=== PATIENT | female | born 1965 | race Caucasian/White ===

== ENCOUNTER 2020-11-29 09:08 | Inpatient (IN) ==
--- NOTE | 2020-11-26 14:55 | Anesthesiology Consultation ---
Date of Service November 26, 2020 Assessment & Plan (1) Encounter for pre-operative examination: Chart Review Chart Review: Pending: Refer to Additional Notes / Consult section (pending surgeon ordered PCP clearance ) and Patient NOT seen in Pre Admission Testing Awaiting surgeon ordered PCP clearance. Will check HR at PCP appt Per nursing assessment 11/26/2020, patient denies any recent travel. No known Covid infection in the past 90 days. No known Covid positive contacts or Covid related symptoms. Covid test 11/25/2020 = negative History Surgery Operation Date: 11/29/20 10:50 Proposed Procedures p L3-S1 Decompression and Fusion, Spinal Cord Monitoring - Jose M Arevalo, Height/Weight Height: 5 ft 6 in Weight: 92.533 kg Allergies Allergy/AdvReac Type Severity Reaction Status Date / Time nitrofurantoin Allergy Severe HEART Verified 11/26/20 13:48 FAILURE meperidine Allergy Intermediate HIVES, RASH Verified 11/26/20 13:48 BEE STING Allergy Severe Anaphylaxis Uncoded 11/26/20 13:49 ADHESIVE TAPE AdvReac Mild SKIN Uncoded 11/26/20 13:49 SENSITIVITY Medications Home Medications Medication Instructions Recorded Confirmed Last Taken albuterol sulfate [ProAir HFA] 2 puff INHALATION QID PRN 11/26/20 11/26/20 Unknown aspirin 325 mg PO DAILY 11/26/20 11/26/20 Unknown buspirone [BuSpar] 15 mg PO BID 11/26/20 11/26/20 Unknown eletriptan [Relpax] 40 mg PO UD PRN 11/26/20 11/26/20 Unknown furosemide [Lasix] 20 mg PO QAM 11/26/20 11/26/20 Unknown gabapentin 600 mg PO HS 11/26/20 11/26/20 Unknown gabapentin enacarbil [Horizant] 600 mg PO QPM 11/26/20 11/26/20 Unknown levothyroxine 175 mcg PO QAM 11/26/20 11/26/20 Unknown melatonin 10 mg PO HS 11/26/20 11/26/20 Unknown methylphenidate HCl [Ritalin] 5 mg PO DAILY 11/26/20 11/26/20 Unknown modafinil [Provigil] 200 mg PO DAILY 11/26/20 11/26/20 Unknown montelukast [Singulair] 10 mg PO QAM 11/26/20 11/26/20 Unknown omeprazole [Prilosec] 40 mg PO QAM 11/26/20 11/26/20 Unknown ondansetron HCl [Zofran] 8 mg PO Q8H PRN 11/26/20 11/26/20 Unknown solriamfetol [Sunosi] 150 mg PO QAM 11/26/20 11/26/20 Unknown tizanidine 4 - 8 mg PO HS PRN 11/26/20 11/26/20 Unknown tramadol 50 mg PO Q8H PRN 11/26/20 11/26/20 Unknown venlafaxine [Effexor XR] 75 mg PO QAM 11/26/20 11/26/20 Unknown vortioxetine [Trintellix] 10 mg PO QPM 11/26/20 11/26/20 Unknown Past Medical History Medical History Anxiety and depression Brain aneurysm DX'ED 4 YEARS AGO (STENT PLACED AT [facility]) Fibromyalgia GERD (gastroesophageal reflux disease) History of dysphagia "STRETCHING IN PAST" Hx of endometriosis Hypothyroidism Migraine Narcolepsy Post traumatic stress disorder Restless leg syndrome Short of breath on exertion REASON FOR INHALER Sleep apnea "MILD" USES CPAP Spinal stenosis Temporomandibular joint disorder Past Family History Family History Sister Family history of diabetes mellitus Grandmother (Maternal) Family history of diabetes mellitus Grandfather (Paternal) Family hx of colon cancer Past Surgical History Surgical History Family history of reaction to anesthesia BROTHER-WAKES UP IN MIDDLE OF PROCEDURES H/O bilateral oophorectomy History of anesthesia reaction HAS WOKEN UP IN PAST History of appendectomy History of arthroscopy RT KNEE History of blepharoplasty BILAT. History of bunionectomy LEFT X 2 RT X 1 History of carpal tunnel release RT/LEFT History of section X 1 History of cholecystectomy History of colonoscopy History of endoscopic sinus surgery History of esophagogastroduodenoscopy (EGD) History of hysterectomy History of laparoscopy History of tonsillectomy and adenoidectomy History of tooth extraction Nausea and vomiting after administration of anesthetic agent Social History Smoking Status: Former smoker tobacco type: cigarettes Do You Dip or Chew Tobacco: No Smoking End Date: 2013 Alcohol Use: Yes alcohol intake frequency: holidays/special occasions only substance use type: does not use Testing Laboratory Results Laboratory Tests 11/13/20 11/13/20 11/13/20 14:34 14:34 14:34 WBC 8.45 Hgb 14.3 Hct 43.6 Plt Count 412 H PT 10.1 INR 1.0 Sodium 143 Potassium 3.9 Chloride 110 H Carbon Dioxide 28 BUN 14 Creatinine 0.88 Glucose 103 H 11/13/2020 = UA: Negative Electrocardiogram Date: 11/13/20 Findings: + ST @ (110 bpm) Otherwise normal EKG per cardio. Chest X-Ray Date: 11/13/20 Findings: + NAD Mild elevation of right hemidiaphragm.
[~2020-11-29 09:08] MED LIST: ACETAMINOPHEN 500 MG TAB PO SCH; CeleBREX 200 MG CAP PO SCH; GABAPENTIN 900 MG DOSE PO SCH; LR 15ML/HR IV SCH; ceFAZolin 2000MG 2,000 MG/15 ML SYR IV SCH
[2020-11-29] MEDS ORDERED: LIDOCAINE HCL 2% 2 ML VIAL/AMP(20MG/ML) INFIL ONE (10:00)
[2020-11-29] MEDS ORDERED: PROPOFOL IV EMULSION 10 MG/ML 20 ML VIAL IV ONE (10:00)
[2020-11-29] MEDS ORDERED: fentaNYL citrate 100 MCG/2 ML VIAL ONE (10:00)
[2020-11-29] MEDS ORDERED: ONDANSETRON INJ 2 MG/ML 2 ML VIAL ONE ×2 (10:00→11:34)
[2020-11-29] MEDS ORDERED: MIDAZOLAM HCL 1 MG/ML 2ML VIAL ONE (10:00)
[2020-11-29] MEDS ORDERED: DEXAMETHASONE SOD INJ 4 MG/ML VIAL ONE (10:01)
[2020-11-29] MEDS ORDERED: HYDROmorphone INJ 2 MG/ML SYR/VIAL ONE (10:01)
[2020-11-29] MEDS ORDERED: ROCURONIUM BROMIDE 10 MG/ML 5 ML VIAL IV ONE (10:01)
--- NOTE | 2020-11-29 10:26 | History & Physical Bridge Note ---
Date of Service November 29, 2020 History & Physical Bridge Note I have examined the patient, reviewed the History & Physical and in the interval since the performance of the History & Physical I have noted the following changes of clinical significance: no changes noted
--- NOTE | 2020-11-29 10:27 | History & Physical Report ---
Date of Service November 29, 2020 Assessment & Plan (1) Neurogenic claudication due to lumbar spinal stenosis: Admission and Anticipated Discharge Date Admission Date: L3-S1 decompression fusion History of Present Illness Chief Complaint: Back and bilateral leg pain Primary Care Provider: Maxine Guo MD This is a 55-year-old female who presents with chronic persistent back and bilateral leg pain. Failing course of nonoperative care she is here for surgical intervention. Allergies Allergy/AdvReac Type Severity Reaction Status Date / Time nitrofurantoin Allergy Severe HEART Verified 11/29/20 09:34 FAILURE meperidine Allergy Intermediate HIVES, RASH Verified 11/29/20 09:34 BEE STING Allergy Severe Anaphylaxis Uncoded 11/29/20 09:34 ADHESIVE TAPE AdvReac Mild SKIN Uncoded 11/29/20 09:34 SENSITIVITY Home Medications Medication Instructions Recorded Confirmed Type albuterol sulfate [ProAir HFA] 2 puff INHALATION QID PRN 11/26/20 11/29/20 History aspirin 325 mg PO DAILY 11/26/20 11/29/20 History buspirone [BuSpar] 15 mg PO BID 11/26/20 11/29/20 History eletriptan [Relpax] 40 mg PO UD PRN 11/26/20 11/29/20 History furosemide [Lasix] 20 mg PO QAM 11/26/20 11/29/20 History gabapentin 600 mg PO HS 11/26/20 11/29/20 History gabapentin enacarbil [Horizant] 600 mg PO QPM 11/26/20 11/29/20 History levothyroxine 175 mcg PO QAM 11/26/20 11/29/20 History melatonin 10 mg PO HS 11/26/20 11/29/20 History methylphenidate HCl [Ritalin] 5 mg PO DAILY 11/26/20 11/29/20 History modafinil [Provigil] 200 mg PO DAILY 11/26/20 11/29/20 History montelukast [Singulair] 10 mg PO QAM 11/26/20 11/29/20 History omeprazole [Prilosec] 40 mg PO QAM 11/26/20 11/29/20 History ondansetron HCl [Zofran] 8 mg PO Q8H PRN 11/26/20 11/29/20 History solriamfetol [Sunosi] 150 mg PO QAM 11/26/20 11/29/20 History tizanidine 4 - 8 mg PO HS PRN 11/26/20 11/29/20 History tramadol 50 mg PO Q8H PRN 11/26/20 11/29/20 History venlafaxine [Effexor XR] 75 mg PO QAM 11/26/20 11/29/20 History vortioxetine [Trintellix] 10 mg PO QPM 11/26/20 11/29/20 History Past Med/Surg History Medical History Anxiety and depression Brain aneurysm DX'ED 4 YEARS AGO (STENT PLACED AT [facility]) Fibromyalgia GERD (gastroesophageal reflux disease) History of dysphagia "STRETCHING IN PAST" Hx of endometriosis Hypothyroidism Migraine Narcolepsy Post traumatic stress disorder Restless leg syndrome Short of breath on exertion REASON FOR INHALER Sleep apnea "MILD" USES CPAP Spinal stenosis Temporomandibular joint disorder Surgical History Family history of reaction to anesthesia BROTHER-WAKES UP IN MIDDLE OF PROCEDURES H/O bilateral oophorectomy History of anesthesia reaction HAS WOKEN UP IN PAST History of appendectomy History of arthroscopy RT KNEE History of blepharoplasty BILAT. History of bunionectomy LEFT X 2 RT X 1 History of carpal tunnel release RT/LEFT History of section X 1 History of cholecystectomy History of colonoscopy History of endoscopic sinus surgery History of esophagogastroduodenoscopy (EGD) History of hysterectomy History of laparoscopy History of tonsillectomy and adenoidectomy History of tooth extraction Nausea and vomiting after administration of anesthetic agent Family History Sister Family history of diabetes mellitus Grandmother (Maternal) Family history of diabetes mellitus Grandfather (Paternal) Family hx of colon cancer Social History Smoking Status: Former smoker Smoking End Date: 2013; Second Hand Exposure: Yes (IN THE PAST); Do You Dip or Chew Tobacco: No; Tobacco Cessation Education Requested by Patient: No Hx Alcohol Use: Yes Preferred Language: Thai 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
[2020-11-29] MEDS ORDERED: SCOPOLAMINE 1 MG TDSY TD ONE ×2 (10:40→10:42)
[2020-11-29] MEDS ORDERED: fentaNYL citrate 100 MCG/2 ML VIAL IV PRN (10:41)
[2020-11-29] MEDS ORDERED: ATROPINE SULFATE 0.1 MG/ML 10ML SYR IV PRN (10:41)
[2020-11-29] MEDS ORDERED: ePHEDrine sulfate 50 MG/ML AMP IV PRN (10:41)
[2020-11-29] MEDS ORDERED: HYDROmorphone INJ 2 MG/ML SYR/VIAL IV PRN (10:42)
[2020-11-29] MEDS ORDERED: PROMETHAZINE HCL 12.5 MG in SODIUM CHLORIDE 0.9% 50 ML IV PRN ×2 (10:42→14:34)
[2020-11-29] MEDS ORDERED: ONDANSETRON INJ 2 MG/ML 2 ML VIAL IV PRN ×2 (10:42→14:34)
[2020-11-29] MEDS ORDERED: BUPIVACAINE/EPINEPHRINE 0.5% MPF 1:200,000 30 ML VIAL ONE (10:45)
[2020-11-29] MEDS ORDERED: BACITRACIN INJ 50,000 UNIT VIAL ONE (10:45)
[2020-11-29] MEDS ORDERED: FAMOTIDINE/PF 20 MG/2 ML VIAL IV ONE (10:49)
[2020-11-29] MEDS ORDERED: ePHEDrine sulfate 50 MG/ML AMP ONE (11:30)
[2020-11-29] MEDS ORDERED: PHENYLEPHRINE HCL 10 MG/ML VIAL ONE (11:30)
[2020-11-29] MEDS ORDERED: METOCLOPRAMIDE HCL INJ 5 MG/ML 2 ML VIAL ONE (11:34)
[2020-11-29] MEDS ORDERED: diphenhydrAMINE 50 MG/ML VIAL ONE (11:34)
[2020-11-29] MEDS ORDERED: GLYCOPYRROLATE 0.2 MG/ML VIAL ONE (11:53)
[2020-11-29] MEDS ORDERED: NEOSTIGMINE METHYLSULFATE 1 MG/ML 10ML VIAL ONE (11:53)
[2020-11-29] MEDS ORDERED: FLOSEAL HEMOSTATIC MATRIX 10ML TOP ONE (13:09)
[2020-11-29] MEDS ORDERED: KETOROLAC 30 MG/ML VIAL ONE (13:11)
--- NOTE | 2020-11-29 13:17 | Operative Report ---
Post Operative Report Pre & Post Diagnosis Operation Date: 11/29/20 10:40 Pre-Op Diagnosis: Spinal Stenoisis with Neurogenic Claudication L3-S1 Post-Op Diagnosis: Spinal Stenoisis with Neurogenic Claudication L3-S1 I identified the patient and participated in the time-out.: Yes Procedure Operation Date: 11/29/20 10:40 Actual Procedures #1 Lumbar decompression with bilateral medial facetectomies and foraminotomies L3-4, L4-5 and L5-S1. #2 posterior spinal fusion L4-5 L5-S1. #3 placement posterior instrumentation L4-5 L5-S1. #4 interbody fusion L4-5 L5-S1. #5 placed a peek cage 12 x 22 mm at L4-5 and 10 x 22 mm at L5-S1. #6 placement locally harvested morselized autograft in the posterior lateral gutters. #7 placement infuse collagen sponge, and master graft in the posterior lateral gutters and ostial amp interbody space. Surgeon Jose M Arevalo, DO Jewel Diameter Gauger Moriah Spencer Estimated Blood Loss 200 Findings See Below Patient is 5 foot 6 weighing over 91 kg with a BMI in excess of 32. Patient's body habitus did add significant technical difficulty requiring her deepest retractors and longest instruments in order to perform her procedure. At least 50% increase to the operative time. Specimens None Indications This is a 55-year-old female who presents with above-mentioned diagnosis after failing course of nonoperative care is here for the above-mentioned procedure. Description of Procedure Patient was met with identified informed consent obtained. Patient was then taken to the operative suite underwent an patient placed in a prone position the Steven table on top Juan frame. All bony prominences well-padded eyes inspected to ensure no external pressure placed upon the. This point the lumbar spine was prepped and draped in a sterile fashion. Sharp dissection with the assistance of Bovie cautery was performed down to and exposing the lamina and transverse processes of L4-L5 and sacral ala bilaterally. From caudal cephalad fashion complete laminectomy of L5 L4 and partial laminectomy of L3 was performed obvious bilateral pars defect was noted at L5 bilaterally. I performed bilateral medial facetectomies and foraminotomies addressing severe spinal stenosis. Pedicle screws were then placed in L4-L5 and S1 levels bilaterally with assistance of fluoroscopy the proper sized yuri placed. By way of a transforamen approach and left complete discectomy was performed endplates curetted to subcortical being bone and a 10 x 22 mm peek cage filled with osteobone graft tapped in position. Then proceeded L4-[address] of a transforaminal portion left complete discectomy was performed endplates curetted to subcortically bone and a 12 x 22 mm peek cage filled with osteobone graft tapped in position. The rods were then locked in final position bilaterally. The transverse processes of L4-L5 and sacral ala burred to subcortical bleeding bone. Infuse collagen sponge master graft local autograft was placed in the posterior gutters. 15 round CLAUDE drain inserted. The incision was then closed with 1 Vicryl the fascia 2-0 Vicryl subcutaneously and 4 Monocryl for final skin closure. Steri-Strip sterile dressings placed. Patient will continue PACU stable condition. Please note spinal cord monitoring was utilized at the procedure no changes noted. Lastly Moriah Spencer was present at the entire procedure involved in patient positioning complex portions of the surgery and final skin closure. I attest to the content of the Intraoperative Record and any orders documented therein. Any exceptions are noted below.
--- NOTE | 2020-11-29 13:23 | Fluoroscopy Report ---
FL lumbar spine 2-3V CLINICAL HISTORY: L3-S1 DECOMPRESSION AND FUSION COMPARISON STUDY: None. FLUOROSCOPY TIME: 23 seconds. FLUOROSCOPIC IMAGES: 2 FINDINGS: These images demonstrate L4-L5 and L5-S1 discectomies with interbody spacer placement. Post erior decompression is noted with bilateral pedicle screws from L4 through S1 with interconnecting ro ds. Hardware is intact. There are no unexpected radiopaque foreign bodies. IMPRESSION: Fluoroscopy provided during L4-S1 posterior decompression, bilateral pedicle screw fusio n and discectomy. ACT 112: Negative or not required by law. Electronically signed by: Juan Bhatt M.D. 11/29/2020 1:22 PM
--- NOTE | 2020-11-29 14:28 | Anesthesiology Progress Note ---
Date of Service November 29, 2020 Anesthesia Post Procedure Vital Signs Vital Signs: Temp Pulse Pulse Resp BP BP Pulse Ox 11/29/20 14:25 77 17 108/52 L 98 11/29/20 14:15 36.6 C 83 17 105/65 98 11/29/20 14:05 74 13 116/65 98 11/29/20 13:55 72 14 124/67 96 11/29/20 13:45 70 12 121/61 97 11/29/20 13:35 36.7 C 78 15 120/56 L 93 11/29/20 09:57 36.9 C 89 16 108/74 97 Pain Intensity Posterior Back: Pain Intensity: 4 Transfer of Care Handoff Completed per policy Notes Mental Status: alert / awake / arousable and participated in evaluation Patient Amnestic to Procedure: Yes Nausea / Vomiting: adequately controlled Pain: adequately controlled Airway Patency, RR, SpO2: stable & adequate BP & HR: stable & adequate Hydration State: stable & adequate Anesthetic Complications: no major complications apparent and Pt Satisfied with anesthetic care
[2020-11-29] MEDS ORDERED: SOD PHOSPHATE/SOD BIPHOSPHATE ENEMA 132 ML BTL PR PRN (14:34)
[2020-11-29] MEDS ORDERED: NON-FORMULARY MEDICATION (Ondansetron Hcl 8 mg Tablet) PO PRN (14:34)
[2020-11-29] MEDS ORDERED: ACETAMINOPHEN 1,000 MG/100 ML VIAL IV PRN (14:34)
[2020-11-29] MEDS ORDERED: LORazepam 0.5 MG/1 ML VIAL IV PRN (14:34)
[2020-11-29] MEDS ORDERED: ALBUTEROL HFA 8 GM INHALER INH PRN (14:34)
[2020-11-29] MEDS ORDERED: FAMOTIDINE 20 MG TAB PO PRN (14:34)
[2020-11-29] MEDS ORDERED: traMADol HCL 50 MG TABLET PO PRN (14:34)
[2020-11-29] MEDS ORDERED: hydrOXYzine HCl 25 MG TAB PO PRN (14:34)
[2020-11-29] MEDS ORDERED: DO NOT ADMINISTER PNEUMOCOCCAL VACCINE PRN (14:34)
[2020-11-29] MEDS ORDERED: METOCLOPRAMIDE HCL INJ 5 MG/ML 2 ML VIAL IV PRN (14:34)
[2020-11-29] MEDS ORDERED: MAGNESIUM HYDROXIDE SUSP 30 ML UDC PO PRN (14:34)
[2020-11-29] MEDS ORDERED: DO NOT ADMINISTER FLU VACCINE PRN (14:34)
[2020-11-29] MEDS ORDERED: NALOXONE HCL 0.4 MG/1 ML VIAL/CARP IV PRN (14:34)
[2020-11-29] MEDS ORDERED: HYDROmorphone INJ 1 MG/ML SYRINGE IV PRN (14:34)
[2020-11-29] MEDS ORDERED: diphenhydrAMINE Capsule 25 MG CAP PO PRN (14:34)
[2020-11-29] MEDS ORDERED: ACETAMINOPHEN 500 MG TAB PO PRN (14:34)
[2020-11-29] MEDS ORDERED: HYDROmorphone INJ 0.5 MG/0.5 ML SYR IV PRN (14:34)
[2020-11-29] MEDS ORDERED: ONDANSETRON 4 MG OD TAB PO PRN (14:34)
[2020-11-29] MEDS ORDERED: ALUMINUM/MAGNESIUM SUSP 30 ML UDC PO PRN (14:34)
[2020-11-29] MEDS ORDERED: LORazepam 0.5 MG TAB PO PRN (14:34)
[2020-11-29] MEDS: LACTATED RINGER'S 1,000 ML IV SCH ×2 (15:13→19:21)
[2020-11-29] MEDS: CHECK SCOPOLAMINE PATCH PLACEMENT SCH ×2 (15:14→23:34)
[2020-11-29] MEDS: TRINTELLIX: ORDER AWAITING ACTION SCH ×2 (15:14→23:35)
[2020-11-29] MEDS: KETOROLAC TROMETHAMINE 15 MG/ML VIAL IV SCH ×2 (15:36→20:33)
[2020-11-29] MEDS: oxyCODONE HCL IR 5 MG TAB (IMMEDIATE RELEASE) PO PRN (19:22)
[2020-11-29] MEDS: ceFAZolin 2000MG 2,000 MG/15 ML SYR IV SCH (19:22)
[2020-11-29] MEDS: busPIRone 15 MG TAB PO SCH (20:33)
[2020-11-29] MEDS: DOCUSATE SODIUM/SENNA 50/8.6MG TAB PO SCH (20:33)
[2020-11-29] MEDS: GABAPENTIN 600 MG TAB PO SCH (20:33)
[2020-11-29] MEDS: MELATONIN 3 MG TAB PO SCH (22:02)
[2020-11-30] MEDS: KETOROLAC TROMETHAMINE 15 MG/ML VIAL IV SCH ×2 (03:18→09:01)
[2020-11-30] MEDS: ceFAZolin 2000MG 2,000 MG/15 ML SYR IV SCH (03:19)
[2020-11-30] MEDS: oxyCODONE HCL IR 5 MG TAB (IMMEDIATE RELEASE) PO PRN ×3 (03:24→18:07)
[2020-11-30] MEDS: LACTATED RINGER'S 1,000 ML IV SCH (04:04)
[2020-11-30] MEDS: LEVOTHYROXINE SODIUM 175 MCG TABLET PO SCH (05:53)
[2020-11-30 06:28] LABS: Hematocrit (blood only) 32.8 % (37-47); Hemoglobin 10.5 g/dL (12.0-16.0); Immature Granulocytes # (auto) 0.01 K/uL (0.00-0.02); Immature Granulocytes % (auto) 0.1 %; Lymphocytes # (auto) 1.02 K/uL (1.2-3.4); Mean Corpuscular Hemoglobin 32.6 pg (25-34); Mean Corpuscular Volume 101.9 fL (80-100); Mean Platelet Volume 11.1 fL (7.4-10.4); Neutrophils # (auto) 10.84 K/uL (1.4-6.5); Neutrophils % (auto) 84.9 %; Platelet Count 336 K/uL (130-400); RDW Coefficient of Variation 13.2 % (11.5-14.5); Red Blood Count 3.22 M/uL (4.2-5.4); White Blood Count 12.77 K/uL (4.8-10.8)
[2020-11-30 07:05] LABS: BUN Creatinine Ratio 15.5 (10-20); Calcium 8.7 mg/dl (8.5-10.1); Creatinine Clr Calc Pharmacy 84.1 ml/min; Est GFR (African American) 86.9; Potassium 4.3 mmol/L (3.5-5.1)
[2020-11-30] MEDS: TRINTELLIX: ORDER AWAITING ACTION SCH ×3 (07:51→23:40)
[2020-11-30] MEDS ORDERED: METHYLPHENIDATE HCL 5 MG TABLET PO SCH (09:00)
[2020-11-30] MEDS ORDERED: ASPIRIN 325 MG ECTAB PO SCH ×2 (09:00→17:00)
[2020-11-30] MEDS: CHECK SCOPOLAMINE PATCH PLACEMENT SCH ×3 (09:00→23:40)
[2020-11-30] MEDS ORDERED: Nursing to Pharmacy Communication SCH (09:00)
[2020-11-30] MEDS: modafiniL 100 MG TAB PO SCH (09:01)
[2020-11-30] MEDS: MONTELUKAST SODIUM 10 MG TABLET PO SCH (09:02)
[2020-11-30] MEDS: PANTOprazole 40 MG TAB PO SCH (09:02)
[2020-11-30] MEDS: FUROSEMIDE 20 MG TAB PO SCH (09:03)
[2020-11-30] MEDS: VENLAFAXINE HCL XR 75 MG CAPXR PO SCH (09:03)
[2020-11-30] MEDS: busPIRone 15 MG TAB PO SCH ×2 (09:04→21:59)
--- NOTE | 2020-11-30 10:23 | Orthopedic Progress Note ---
Date of Service November 30, 2020 Assessment & Plan (1) Neurogenic claudication due to lumbar spinal stenosis: Admission and Anticipated Discharge Date Admission Date: November 29, 2020 At this time we will continue physical therapy monitor CLAUDE output anticipate discharge home Tuesday. Subjective Back pain is controlled leg symptoms markedly improved. Physical Exam Physical Exam: Patient has good strength testing appears comfortable. Results & Data ([facility]) Vital Signs (Past 12 Hours) Vital Signs Temp Pulse Resp BP Pulse Ox 11/30/20 07:23 36.6 C 61 16 106/66 94 11/30/20 05:55 101/67 11/30/20 03:17 36.7 C 79 16 93/60 L 93 11/29/20 23:17 36.7 C 88 16 106/67 93
[2020-11-30] MEDS: METHYLPHENIDATE HCL 5 MG TABLET PO SCH (12:09)
[2020-11-30] MEDS: POLYETHYLENE (MIRALAX) 17 GM PACK PO SCH ×3 (12:09→23:39)
[2020-11-30] MEDS: GABAPENTIN 600 MG TAB PO SCH (21:58)
[2020-11-30] MEDS: MELATONIN 3 MG TAB PO SCH (21:58)
[2020-11-30] MEDS: DOCUSATE SODIUM/SENNA 50/8.6MG TAB PO SCH (21:58)
[2020-12-01] MEDS: oxyCODONE HCL IR 5 MG TAB (IMMEDIATE RELEASE) PO PRN ×3 (06:15→15:48)
[2020-12-01] MEDS: POLYETHYLENE (MIRALAX) 17 GM PACK PO SCH ×2 (06:15→11:59)
[2020-12-01] MEDS: LEVOTHYROXINE SODIUM 175 MCG TABLET PO SCH (06:15)
[2020-12-01] MEDS: PANTOprazole 40 MG TAB PO SCH (08:35)
[2020-12-01] MEDS: FUROSEMIDE 20 MG TAB PO SCH (08:35)
[2020-12-01] MEDS: VENLAFAXINE HCL XR 75 MG CAPXR PO SCH (08:35)
[2020-12-01] MEDS: MONTELUKAST SODIUM 10 MG TABLET PO SCH (08:35)
[2020-12-01] MEDS: busPIRone 15 MG TAB PO SCH (08:35)
[2020-12-01] MEDS: CHECK SCOPOLAMINE PATCH PLACEMENT SCH (08:36)
[2020-12-01] MEDS: TRINTELLIX: ORDER AWAITING ACTION SCH (08:38)
[2020-12-01] MEDS: modafiniL 100 MG TAB PO SCH (08:42)
[2020-12-01] MEDS ORDERED: dexAMETHasone 8 MG in SYRINGE 0 ML IV SCH (09:00)
[2020-12-01] MEDS ORDERED: NURSING DECISION MEDICATION ONE (09:10)
[2020-12-01] MEDS ORDERED: SODIUM CHLORIDE 0.65% NA SOLN 45 ML (OCEAN) PRN (09:14)
[2020-12-01] MEDS: METHYLPHENIDATE HCL 5 MG TABLET PO SCH (11:59)
--- NOTE | 2020-12-01 12:58 | Discharge Summary ---
Date of Service December 01, 2020 Admission HPI Per Admitting Provider This is a 55-year-old female who presents with chronic persistent back and bilateral leg pain. Failing course of nonoperative care she is here for surgical intervention. Principal Diagnosis Lumbar spinal stenosis with neurogenic claudication Discharge Data Allergies Allergy/AdvReac Type Severity Reaction Status Date / Time nitrofurantoin Allergy Severe HEART Verified 11/29/20 09:34 FAILURE meperidine Allergy Intermediate HIVES, RASH Verified 11/29/20 09:34 BEE STING Allergy Severe Anaphylaxis Uncoded 11/29/20 09:34 ADHESIVE TAPE AdvReac Mild SKIN Uncoded 11/29/20 09:34 SENSITIVITY Consultations 11/29/20 14:34 Consult Case Management - Discharge Planning Routine Procedures Performed Operation Date: 11/29/20 10:40 Actual Procedures p L4-S1 Decompression and Fusion with bone morphogenic protein, interbody cage L4-5 and L5-S1, Spinal Cord Monitoring(Not Applicable) - Jose M Arevalo DO Ordered Studies 11/29/20 10:40 FL fluoroscopy <1hr Routine FL lumbar spine 2-3V Routine Hospital Course (1) Neurogenic claudication due to lumbar spinal stenosis: Patient underwent lumbar decompression fusion tolerated this well was taken to orthopedic floor postoperative. Postop day 1 she was up and ambulating leg symptoms improved. She gets a postop day #2 CLAUDE drain decreasing appropriately. Excellent strength testing. Pain well controlled. Subsequently discharged home. Discharge orders and instructions from the chart for further review. Total Time Total Time Spent Total Time Spent (In Minutes): 20 minutes Discharge Plan Discharge Items Patient Disposition: Home - Self-Care Reason For Visit: Spinal Stenoisis with Neurogenic Claudication Discharge Diagnosis: Lumbar spinal stenosis with neurogenic claudication Activity: As commented below Non-emergency contact: Primary Care Provider Call non-emergency contact if: you have any medication questions Follow-up/Referrals: Maxine Guo MD [Primary Care Provider] - Diet: Regular Addtl Attending Provider Instructions: ACTIVITY RECOMMENDATIONS: SELF CARE INSTRUCTIONS AFTER THORACIC/LUMBAR FUSIONS 1. You may walk to your tolerance. It is good exercise for your legs and back. Expect some back and intermittent leg aches and pains. 2. You may perform "counter-top" level activities (make a sandwich, francoise with a project, etc.). 3. No bending or lifting of more than 10 pounds or back twisting of any nature (roll like a log when turning in bed). 4. You may ride in a car for 20-30 minutes at a time. No driving until after your first visit with your doctor. 5. Frequent changes of position and restricting sitting to 30 minutes at a time will help limit the amount of back spasms and stiffness you may experience. 6. You may discontinue the use of ambulatory aids (cane, crutches, etc.) once your strength and confidence allow. 7. You may supervisor blueprinting and photocopy the shower and let water strike your incision when you arrive home at least once daily. Do not take a tub bath, sit in a hot tub or go into a swimming pool until after your first recheck in the office. SPECIAL CARE INSTRUCTIONS: VERY IMPORTANT TO READ AND REVIEW A. Your surgical incision has been closed with a cosmetic suture under the skin that will dissolve in about 6 weeks. In 14 days, you can use a pair of clean scissors and cut the suture that is left outside of the skin at the ends of your incision. 1. The small skin tapes can be removed 7 days after surgery if they have not fallen off by that point. 2. You may keep the wound open to air as much as possible to promote healing after post-op day number 5 unless told otherwise by your doctor. 3. If you think the wound looks like it is becoming infected (redness or worsening drainage) and/or you are experiencing fever, chill or worsening back pain and muscle spasms, contact the office so that we may evaluate you as soon as possible. B. Complications are uncommon, but please contact us if you have any signs or symptoms of: 1. wound infection (fever higher than 102.5 degrees F, redness, separation of wound, drainage, or increasing pain from the incision) 2. blood clots in legs (pain, swelling, redness and warmth in legs) 3. urinary tract infection (fever higher than 102.5 degrees F, burning upon urination or increased frequency of urination) 4. nerve problems (inability to walk on your toes or heels, numbness, loss of bowel or bladder control) 5. any other symptoms that concern you C. Please call the office at if you have any concerns or questions about your operation or recovery. D. No smoking! Smoking drastically decreases the chance of a solid fusion. E. Do not take any anti-inflammatory medications (Indocin, Advil, Motrin, Aspirin, Naprosyn, etc.) as these may inhibit the chance of a solid fusion. Tylenol is okay to take for pain. MANAGING PAIN AFTER SPINAL SURGERY 1. Narcotic medication is intended for short-term use and will be provided for surgical pain. Surgical pain usually lasts for a period of 4-6 weeks. Narcotic medication includes Percocet, Vicodin, Darvocet, Tylenol #3 or Lortab. 2. Longer-term pain is more appropriately treated with non-narcotic medication such as Tylenol ES. 3. Muscle spasm is not appropriately treated with narcotics. Muscle relaxers such as Soma, Flexeril or Skelaxin can be used along with Tylenol ES. 4. Remember that we all live with some "aches and pains". This is not unusual or uncommon after an injury or as we get older. a. Back pain is expected and may include muscle spasms for 4 to 6 weeks after surgery. The pain should gradually improve. If the pain worsens for no apparent reason, please contact the office. b. Intermittent leg pain may also be experienced and should not be concerned about unless it worsens for no apparent reason. If so, please contact the office. 5. We will provide appropriate medication within the normal guidelines of their prescribed use. We will also be very cautious and aware of potential abuse and extended duration of patients' medication needs. a. Pain medications are for your comfort and to assist with sleep and rest so that the tissue can heal. They are not provided in order to return to normal activity and should not be used through the day. To do so or worsening pain at night can result from ongoing tissue damage and development of tolerance to the prescribed medicine. 6. Please allow 2-3 days to process refills. Prescriptions will not be mailed but must be picked up at the office. FOLLOW UP VISIT: Keep your scheduled follow-up appointment. Any questions, please call the office at . Pending Studies at Discharge: No Stand-Alone Forms: My [employer], Smoking Cessation Medications and DC Order Prescriptions: New tramadol 50 mg tablet 50 mg PO Q6H PRN (Reason: pain, moderate) Qty: 30 RF: 0 oxycodone 5 mg tablet 5 mg PO Q6H PRN (Reason: pain, severe) Qty: 30 RF: 0 Continued levothyroxine 175 mcg Tablet 175 mcg PO QAM RF: 0 venlafaxine [Effexor XR] 75 mg Capsule,Extended Release 24hr 75 mg PO QAM RF: 0 aspirin 325 mg Tablet 325 mg PO DAILY RF: 0 tizanidine 4 mg Tablet 4 - 8 mg PO HS PRN (Reason: Pain) RF: 0 ondansetron HCl 8 mg Tablet 8 mg PO Q8H PRN (Reason: Nausea) RF: 0 methylphenidate HCl [Ritalin] 5 mg Tablet 5 mg PO DAILY RF: 0 omeprazole 40 mg Capsule,Delayed Release(Dr/Ec) 40 mg PO QAM RF: 0 tramadol 50 mg Tablet 50 mg PO Q8H PRN (Reason: Pain) RF: 0 modafinil [Provigil] 200 mg Tablet 200 mg PO DAILY RF: 0 gabapentin 300 mg Capsule 600 mg PO HS RF: 0 montelukast [Singulair] 10 mg Tablet 10 mg PO QAM RF: 0 furosemide [Lasix] 20 mg Tablet 20 mg PO QAM RF: 0 albuterol sulfate [ProAir HFA] 90 mcg/actuation Hfa Aerosol Inhaler 2 puff INHALATION QID PRN (Reason: SHORT OF BREATH) RF: 0 buspirone 15 mg Tablet 15 mg PO BID RF: 0 eletriptan [Relpax] 40 mg Tablet 40 mg PO UD PRN (Reason: Migraine Headache) RF: 0 Horizant 600 mg Tablet Extended Release 600 mg PO QPM RF: 0 melatonin 10 mg Tablet 10 mg PO HS RF: 0 Sunosi 150 mg Tablet 150 mg PO QAM RF: 0 Trintellix 10 mg Tablet 10 mg PO QPM RF: 0 Discharge Orders: Discharge Order (Routine); Ordered 12/01/20 Ordered By: Jose M Arevalo Admission Data Admit Date/Time: 11/29/20 13:54 Attending Provider: Jose M Arevalo Admit Provider: Jose M Arevalo Primary Care Provider: Maxine Guo Other Interventions: Discharge Summary Assessment (RN) Last Done: 12/01/20 10:43
[2020-12-01] MEDS ORDERED: bisacodyL 10 MG SUPP PR PRN (13:19)
== END 2020-12-01 17:07 | disposition home or self-care (01) | DRG 455 ==
LOC: ASU 09:08 → 3E 13:54

== ENCOUNTER 2022-12-28 10:28 | Inpatient (IN) ==
--- NOTE | 2022-12-08 10:26 | PAT Medication Instructions ---
Medication Instructions Date of Service December 08, 2022 Home Medications Medication Instructions Recorded montelukast 10 mg tablet 10 mg PO QAM #90 tabs 10/29/21 (Singulair) cholecalciferol (vitamin D3) 25 75 mcg PO DAILY #30 caps 05/03/22 mcg (1,000 unit) capsule iron,carbonyl 65 mg-vitamin C 125 1 tab PO Q OTHER DAY #30 tabs 05/03/22 mg tablet,delayed release (Vitron-C) omeprazole 40 mg capsule,delayed 40 mg PO QAM #90 caps 07/14/22 release metformin 500 mg tablet 500 mg PO BID #60 tabs 08/27/22 furosemide 20 mg tablet (Lasix) 20 mg PO QAM #90 tabs 08/31/22 albuterol sulfate 90 mcg/actuation 2 puff inhalation QID PRN SHORT OF 10/06/22 aerosol inhaler (ProAir HFA) BREATH #25.5 grams aspirin 325 mg tablet 325 mg PO QAM buspirone 15 mg tablet 15 mg PO BID eletriptan 40 mg tablet (Relpax) 40 mg PO UD PRN methylphenidate HCl 5 mg tablet (Ritalin) 5 mg PO DAILY modafinil 200 mg tablet (Provigil) 200 mg PO QAM ondansetron HCl 8 mg tablet 8 mg PO Q8H PRN montelukast 10 mg tablet (Singulair) 10 mg PO QAM cholecalciferol (vitamin D3) 25 mcg (1,000 unit) capsule 75 mcg PO DAILY iron,carbonyl 65 mg-vitamin C 125 mg tablet,delayed release (Vitron-C) 1 tab PO Q OTHER DAY omeprazole 40 mg capsule,delayed release 40 mg PO QAM metformin 500 mg tablet 500 mg PO BID furosemide 20 mg tablet (Lasix) 20 mg PO QAM albuterol sulfate 90 mcg/actuation aerosol inhaler (ProAir HFA) 2 puff inhalation QID PRN bupropion HCl 150 mg 24 hr tablet, extended release (Wellbutrin XL) 150 mg PO QAM bupropion HCl 300 mg 24 hr tablet, extended release (Wellbutrin XL) 300 mg PO QAM escitalopram oxalate 20 mg tablet (Lexapro) 20 mg PO QPM levothyroxine 100 mcg tablet 100 mcg PO QAM methylphenidate HCl 10 mg tablet 10 mg PO QAM pregabalin 100 mg capsule 100 mg PO HS sodium oxybate 500 mg/mL oral solution (Xyrem) 4.5 g PO BID Do NOT take evening before surgery or day of surgery-check if okay with prescribing provider sodium oxybate 500 mg/mL oral solution (Xyrem) 4.5 g PO BID Continue as directed eletriptan 40 mg tablet (Relpax) 40 mg PO UD PRN(if needed) ondansetron HCl 8 mg tablet 8 mg PO Q8H PRN(if needed) ASK your prescriber and surgeon aspirin 325 mg tablet 325 mg PO QAM DO NOT take the morning of surgery methylphenidate HCl 5 mg tablet (Ritalin) 5 mg PO DAILY modafinil 200 mg tablet (Provigil) 200 mg PO QAM cholecalciferol (vitamin D3) 25 mcg (1,000 unit) capsule 75 mcg PO DAILY iron,carbonyl 65 mg-vitamin C 125 mg tablet,delayed release (Vitron-C) 1 tab PO Q OTHER DAY metformin 500 mg tablet 500 mg PO BID furosemide 20 mg tablet (Lasix) 20 mg PO QAM methylphenidate HCl 10 mg tablet 10 mg PO QAM Take morning of surgery With a small sip of water, OTHERWISE NOTHING TO EAT OR DRINK AFTER MIDNIGHT: buspirone 15 mg tablet 15 mg PO BID montelukast 10 mg tablet (Singulair) 10 mg PO QAM omeprazole 40 mg capsule,delayed release 40 mg PO QAM albuterol sulfate 90 mcg/actuation aerosol inhaler (ProAir HFA) 2 puff inhalation QID PRN(use if needed; please bring with you to hospital day of surgery if possible) bupropion HCl 150 mg 24 hr tablet, extended release (Wellbutrin XL) 150 mg PO QAM bupropion HCl 300 mg 24 hr tablet, extended release (Wellbutrin XL) 300 mg PO QAM levothyroxine 100 mcg tablet 100 mcg PO QAM Take evening before surgery buspirone 15 mg tablet 15 mg PO BID metformin 500 mg tablet 500 mg PO BID albuterol sulfate 90 mcg/actuation aerosol inhaler (ProAir HFA) 2 puff inhalation QID PRN(if needed) escitalopram oxalate 20 mg tablet (Lexapro) 20 mg PO QPM pregabalin 100 mg capsule 100 mg PO HS Other Notes If you have any questions please call us at [phone] or [phone] or [phone] or [phone]
--- NOTE | 2022-12-14 09:18 | Anesthesiology Consultation ---
Date of Service December 14, 2022 Assessment & Plan (1) Encounter for pre-operative examination: - COVID screening: Per assessment on 12/14: No known COVID-19 positive contacts or current COVID-19 related symptoms. Travel screen negative. Patient vaccinated. At surgeon discretion if preop Covid testing being done. - S/P L3-S1 decompression/fusion (11/29/20): Grade view 1, MAC#3, ETT 7.5, atraumatic at [facility]. No issues noted per post-op anesthesia progress note. - Anesthesia concern: Per patient, has been told severe teeth grinding during surgery which has resulted in teeth damage/loss during previous surgeries. Patient wishes to make anesthesia aware/caution perioperatively and with intubation. - Patient acceptable risk for surgery pending surgeon-ordered cardiology preop evaluation ([facility], appt 12/16). Chart Review Chart Review: Patient seen in Pre Admission Testing Teaching & Discussion Pre-Anesthesia Teaching/Discussion Notes: Instructed NPO after midnight before surgery,except medications with 15 cc of water. Medication instructions provided according to the PAT guidelines. History Surgery Operation Date: 12/28/22 07:45 Proposed Procedures p L2-L3 Decompression, L2-S1 Fusion, L4-L5 Hardware Removal, Spinal Cord Monitoring - Jose M Arevalo, Height/Weight Height: 5 ft 6 in Weight: 86.1 kg Allergies Allergy/AdvReac Type Severity Reaction Status Date / Time nitrofurantoin Allergy Severe Heart Verified 12/10/22 10:15 failure meperidine Allergy Intermediate Hives, rash Verified 12/10/22 10:15 BEE STING Allergy Severe Anaphylaxis Uncoded 12/07/22 13:10 ADHESIVE TAPE AdvReac Mild Skin Uncoded 12/10/22 10:15 sensitivity Medications Home Medications Medication Instructions Recorded Confirmed Last Taken aspirin 325 mg tablet 325 mg PO QAM 11/26/20 12/07/22 11/24/20 17:00 buspirone 15 mg tablet 15 mg PO BID 11/26/20 12/07/22 11/28/20 17:00 eletriptan 40 mg tablet (Relpax) 40 mg PO UD PRN Migraine Headache 11/26/20 12/07/22 Unknown methylphenidate HCl 5 mg tablet 5 mg PO DAILY 11/26/20 12/07/22 11/28/20 12:00 (Ritalin) modafinil 200 mg tablet (Provigil) 200 mg PO QAM 11/26/20 12/07/22 11/28/20 12:00 ondansetron HCl 8 mg tablet 8 mg PO Q8H PRN Nausea 11/26/20 12/07/22 11/21/20 12:00 montelukast 10 mg tablet 10 mg PO QAM #90 tabs 10/29/21 12/07/22 Unknown (Singulair) cholecalciferol (vitamin D3) 25 75 mcg PO DAILY #30 caps 05/03/22 12/07/22 Unknown mcg (1,000 unit) capsule iron,carbonyl 65 mg-vitamin C 125 1 tab PO Q OTHER DAY #30 tabs 05/03/22 12/07/22 Unknown mg tablet,delayed release (Vitron-C) omeprazole 40 mg capsule,delayed 40 mg PO QAM #90 caps 07/14/22 12/07/22 Unknown release metformin 500 mg tablet 500 mg PO BID #60 tabs 08/27/22 12/07/22 Unknown furosemide 20 mg tablet (Lasix) 20 mg PO QAM #90 tabs 08/31/22 12/07/22 Unknown albuterol sulfate 90 mcg/actuation 2 puff inhalation QID PRN SHORT OF 10/06/22 12/07/22 Unknown aerosol inhaler (ProAir HFA) BREATH #25.5 grams bupropion HCl 150 mg 24 hr tablet, 150 mg PO QAM 12/07/22 12/07/22 Unknown extended release (Wellbutrin XL) bupropion HCl 300 mg 24 hr tablet, 300 mg PO QAM 12/07/22 12/07/22 Unknown extended release (Wellbutrin XL) escitalopram oxalate 20 mg tablet 20 mg PO QPM 12/07/22 12/07/22 Unknown (Lexapro) levothyroxine 100 mcg tablet 100 mcg PO QAM 12/07/22 12/07/22 Unknown methylphenidate HCl 10 mg tablet 10 mg PO QAM 12/07/22 12/07/22 Unknown pregabalin 100 mg capsule 100 mg PO HS 12/07/22 12/07/22 Unknown sodium oxybate 500 mg/mL oral 4.5 g PO BID 12/07/22 12/07/22 Unknown solution (Xyrem) Past Medical History Medical History Anxiety and depression Depression with anxiety Fibromyalgia GERD (gastroesophageal reflux disease) History of COVID-19 09/2021 History of dysphagia Hx esophageal stretching History of heart failure 10+ years ago, antibiotic reaction, no issues since Hx of endometriosis Hypothyroidism Migraine Narcolepsy Post traumatic stress disorder Restless leg syndrome Right internal carotid artery aneurysm Dx 4 years ago > stent placed ([facility]) Short of breath on exertion Reason for inhaler per patient Sleep apnea "Mild", CPAP (compliant) Spinal stenosis Temporomandibular joint disorder Exercise / Class Metabolic Activity III < 4 Walking/Shop/Light housework (one FS (no CP, + mild SOB)) Past Family History Family History Sister Family history of diabetes mellitus Grandmother (Maternal) Family history of diabetes mellitus Grandfather (Paternal) Family hx of colon cancer Mother Hypertension Past Surgical History Surgical History Family history of reaction to anesthesia Brother- awareness H/O bilateral oophorectomy History of anesthesia reaction Awareness History of appendectomy History of arthroscopy Right knee History of blepharoplasty R/L History of bunionectomy Rx1, Lx2 History of carpal tunnel release R/L History of section x1 History of cholecystectomy History of colonoscopy History of endoscopic sinus surgery History of esophagogastroduodenoscopy (EGD) History of hysterectomy History of laparoscopy History of lumbar fusion L3-S1 decompression/fusion (11/29/20): Grade view 1, MAC#3, ETT 7.5, atraumatic at [facility]. No issues noted per post-op anesthesia progress note. History of tonsillectomy and adenoidectomy History of tooth extraction Internal carotid artery stent present Nausea and vomiting after administration of anesthetic agent Past Anesthesia History Other (Awareness) Brother- Awareness History of PONV No Hx of Motion Sickness and History of PONV Social History Smoking Status: Former smoker Do You Dip or Chew Tobacco: No Smoking End Date: Quit 06/2014 Hx Alcohol Use: Yes alcohol intake frequency: holidays/special occasions only Hx Substance Use: No substance use type: does not use Review of Systems Patient denies chest pain, shortness of breath, fever, chills, cough, wheezing, palpitations. Physical Exam Vital Signs VITALS BP 105/65 P 70 TEMP 98.1 SP02 96%RA RESP 16 PHYSICAL Mildly decreased cervical extension range of motion. Full TMJ range of motion. TMD 3.5 finger breaths Mallampati Score 2 Dentition: several missing teeth including upper left side, several impl ants/crowns Lungs: clear throughout to auscultation Cardiac: regular rate and rhythm, no murmurs noted Spine: normal Carotid arteries: negative bruit Extremities: no edema Lab Results Anesthesia Preop Results Results Anesthesia Widget: WBC 6.43 K/ul (4.8-10.8) 12/14/22 Hgb 13.0 g/dl (12.0-16.0) 12/14/22 Hct 39.5 % (37.0-47.0) 12/14/22 Plt 351 K/uL (130-400) 12/14/22 Na 143 mmol/L (136-145) 12/14/22 K 4.0 mmol/L (3.5-5.1) 12/14/22 Cl 110 mmol/L (98-107) H 12/14/22 CO2 28 mmol/L (21-32) 12/14/22 BUN 11 mg/dl (6-23) 12/14/22 Creat 0.84 mg/dl (0.6-1.2) 12/14/22 Glucose Level 78 mg/dl (70-99(Fasting)) 12/14/22 PT 10.3 Seconds (9.0-12.0) 12/14/22 PTT 27.5 Seconds (21.0-31.0) 12/14/22 INR 1.0 (0.9-1.1) 12/14/22 Urine Color Yellow 12/14/22 Urine Appearance Clear (Clear) 12/14/22 Urine pH 8.5 (4.5-7.5) H 12/14/22 Urine Specific [place] 1.021 (1.000-1.030) 12/14/22 Urine Protein Negative (Negative) 12/14/22 Urine Glucose (UA) Negative (Negative) 12/14/22 Urine Ketones Negative (Negative) 12/14/22 Urine Blood Negative (Negative) 12/14/22 Urine Nitrite Negative (Negative) 12/14/22 Urine Bilirubin Negative (Negative) 12/14/22 Urine Urobilinogen Negative (Negative) 12/14/22 Urine Leukocyte Esterase Negative (Negative) 12/14/22 Blood Type O Positive 12/14/22 Antibody Screen NEGATIVE 12/14/22 Testing Electrocardiogram Date: 12/14/22 Findings: + NSR @ (71) Chest X-Ray Date: 11/27/22 Mild elevation of right hemidiaphragm again seen (comparison 08/10/2016). No pleural effusion. No pneumothorax. No airspace opacity or interstitial thickening. Other Testing CTA Neck/head (03/05/22) Patent type I stent in distal right ICA. No residual aneurysm. Unremarkable left ICA. Unremarkable CTA brain. COVID-19 Risk Screen Screening Information COVID-19 Screen Date: 12/14/22 Exposure 21 Days Family/Household +COVID Last 21 Days: No Exposure 10 Days Any COVID Exposure Last 10 Days: No Symptoms Last 10 Days Experienced COVID Sx Last 10 Days: No + COVID 0-90 Days COVID + in Last 0-90 Days: No
[~2022-12-28 10:28] MED LIST changes: +GABAPENTIN 600 MG DOSE PO SCH; -GABAPENTIN 900 MG DOSE PO SCH
[2022-12-28] MEDS ORDERED: fentaNYL citrate PF 100 MCG/2 ML VIAL ONE (10:49)
[2022-12-28] MEDS ORDERED: DEXAMETHASONE SOD INJ 4 MG/ML VIAL ONE (10:49)
[2022-12-28] MEDS ORDERED: MIDAZOLAM HCL 1 MG/ML 2ML VIAL ONE (10:49)
[2022-12-28] MEDS ORDERED: PROPOFOL IV EMULSION 10 MG/ML 20 ML VIAL IV ONE (10:49)
[2022-12-28] MEDS ORDERED: LIDOCAINE 2% MPF LOCAL 5 ML VIAL INFIL ONE (10:49)
[2022-12-28] MEDS ORDERED: ONDANSETRON INJ 2 MG/ML 2 ML VIAL ONE (10:49)
[2022-12-28] MEDS ORDERED: ROCURONIUM BROMIDE 10 MG/ML 5 ML VIAL IV ONE (10:49)
[2022-12-28] MEDS ORDERED: ONDANSETRON INJ 2 MG/ML 2 ML VIAL IV PRN ×2 (11:26→16:18)
[2022-12-28] MEDS ORDERED: HYDROmorphone INJ 2 MG/ML SYR/VIAL IV PRN (11:26)
[2022-12-28] MEDS ORDERED: ATROPINE SULFATE 0.1 MG/ML 10ML SYR IV PRN (11:26)
[2022-12-28] MEDS ORDERED: ePHEDrine sulfate 50 MG/ML AMP IV PRN (11:26)
[2022-12-28] MEDS ORDERED: PROMETHAZINE HCL 12.5 MG in SODIUM CHLORIDE 0.9% 50 ML IV PRN ×2 (11:26→16:18)
--- NOTE | 2022-12-28 11:52 | History & Physical Bridge Note ---
Date of Service December 28, 2022 History & Physical Bridge Note I have examined the patient, reviewed the History & Physical and in the interval since the performance of the History & Physical I have noted the following changes of clinical significance: no changes noted
--- NOTE | 2022-12-28 11:53 | History & Physical Report ---
Date of Service December 28, 2022 Assessment & Plan (1) Neurogenic claudication due to lumbar spinal stenosis: Plan: L2-4 decompression, L2-S1 fusion, L4-L5 hardware removal History of Present Illness Chief Complaint: Back and leg pain Primary Care Provider: Jackie Irwin DO This is a 57-year-old female who presents with chronic persistent back and leg pain after failing course of nonoperative care she is here for surgical intervention. Allergies Allergy/AdvReac Type Severity Reaction Status Date / Time nitrofurantoin Allergy Severe Heart Verified 12/28/22 10:59 failure meperidine Allergy Intermediate Hives, rash Verified 12/28/22 10:59 BEE STING Allergy Severe Anaphylaxis Uncoded 12/28/22 10:59 ADHESIVE TAPE AdvReac Mild Skin Uncoded 12/28/22 10:59 sensitivity Home Medications Medication Instructions Recorded Confirmed Type aspirin 325 mg tablet 325 mg PO QAM 11/26/20 12/28/22 History buspirone 15 mg tablet 15 mg PO BID 11/26/20 12/28/22 History eletriptan 40 mg tablet (Relpax) 40 mg PO UD PRN Migraine Headache 11/26/20 12/28/22 History methylphenidate HCl 5 mg tablet 5 mg PO DAILY 11/26/20 12/28/22 History (Ritalin) modafinil 200 mg tablet (Provigil) 200 mg PO QAM 11/26/20 12/28/22 History ondansetron HCl 8 mg tablet 8 mg PO Q8H PRN Nausea 11/26/20 12/28/22 History montelukast 10 mg tablet 10 mg PO QAM #90 tabs 10/29/21 12/28/22 Rx (Singulair) cholecalciferol (vitamin D3) 25 75 mcg PO DAILY #30 caps 05/03/22 12/28/22 Rx mcg (1,000 unit) capsule iron,carbonyl 65 mg-vitamin C 125 1 tab PO Q OTHER DAY #30 tabs 05/03/22 12/28/22 Rx mg tablet,delayed release (Vitron-C) omeprazole 40 mg capsule,delayed 40 mg PO QAM #90 caps 07/14/22 12/28/22 Rx release metformin 500 mg tablet 500 mg PO BID #60 tabs 08/27/22 12/28/22 Rx furosemide 20 mg tablet (Lasix) 20 mg PO QAM #90 tabs 08/31/22 12/28/22 Rx albuterol sulfate 90 mcg/actuation 2 puff inhalation QID PRN SHORT OF 10/06/22 12/28/22 Rx aerosol inhaler (ProAir HFA) BREATH #25.5 grams bupropion HCl 150 mg 24 hr tablet, 150 mg PO QAM 12/07/22 12/28/22 History extended release (Wellbutrin XL) bupropion HCl 300 mg 24 hr tablet, 300 mg PO QAM 12/07/22 12/28/22 History extended release (Wellbutrin XL) escitalopram oxalate 20 mg tablet 20 mg PO QPM 12/07/22 12/28/22 History (Lexapro) levothyroxine 100 mcg tablet 100 mcg PO QAM 12/07/22 12/28/22 History methylphenidate HCl 10 mg tablet 10 mg PO QAM 12/07/22 12/28/22 History pregabalin 100 mg capsule 100 mg PO HS 12/07/22 12/28/22 History sodium oxybate 500 mg/mL oral 4.5 g PO BID 12/07/22 12/28/22 History solution (Xyrem) Past Med/Surg History Medical History Anxiety and depression Depression with anxiety Fibromyalgia GERD (gastroesophageal reflux disease) History of COVID-19 09/2021 History of dysphagia Hx esophageal stretching History of heart failure 10+ years ago, antibiotic reaction, no issues since Hx of endometriosis Hypothyroidism Migraine Narcolepsy Post traumatic stress disorder Restless leg syndrome Right internal carotid artery aneurysm Dx 4 years ago > stent placed ([facility]) Short of breath on exertion Reason for inhaler per patient Sleep apnea "Mild", CPAP (compliant) Spinal stenosis Temporomandibular joint disorder Surgical History Family history of reaction to anesthesia Brother- awareness H/O bilateral oophorectomy History of anesthesia reaction Awareness History of appendectomy History of arthroscopy Right knee History of blepharoplasty R/L History of bunionectomy Rx1, Lx2 History of carpal tunnel release R/L History of section x1 History of cholecystectomy History of colonoscopy History of endoscopic sinus surgery History of esophagogastroduodenoscopy (EGD) History of hysterectomy History of laparoscopy History of lumbar fusion L3-S1 decompression/fusion (11/29/20): Grade view 1, MAC#3, ETT 7.5, atraumatic at [facility]. No issues noted per post-op anesthesia progress note. History of tonsillectomy and adenoidectomy History of tooth extraction Internal carotid artery stent present Nausea and vomiting after administration of anesthetic agent Family History Sister Family history of diabetes mellitus Grandmother (Maternal) Family history of diabetes mellitus Grandfather (Paternal) Family hx of colon cancer Mother Hypertension Social History Smoking Status: Former smoker Smoking End Date: Quit 06/2014; Second Hand Exposure: No; Do You Dip or Chew Tobacco: No; Tobacco Cessation Education Requested by Patient: No Hx Alcohol Use: Yes Hx Substance Use: No Preferred Language: Spanish Communication Ability: Effective Attractions Associate Required: No Beliefs That Will Affect Care: None marital status: Current Living Situation: Spouse Other Information That Helps Us Care for You: No Feels Safe at Home: Yes Safety Concerns: Feels Safe At This Time Assistive Devices: Walker Assistive Devices Comment: right foot boot Physical Exam Physical Exam: Patient is alert and oriented Heart regular rhythm Lungs clear Results & Data Results & Data Vital Signs (Past 12 Hours) Vital Signs Temp Pulse Resp BP Pulse Ox O2 Del Method 12/28/22 11:10 36.7 C 74 18 113/54 L 96 Room Air
[2022-12-28] MEDS ORDERED: BUPIVACAINE/EPINEPHRINE 0.5% MPF 1:200,000 30 ML VIAL ONE (11:55)
[2022-12-28] MEDS ORDERED: ceFAZolin 330 MG/ML 1 GM VIAL ONE (11:55)
[2022-12-28] MEDS ORDERED: KETAMINE 50 MG/5 ML SYRINGE ONE (12:19)
[2022-12-28] MEDS ORDERED: ePHEDrine sulfate 50 MG/ML SYR ONE (12:56)
[2022-12-28] MEDS ORDERED: FLOSEAL HEMOSTATIC MATRIX 10ML TOP ONE (13:05)
--- NOTE | 2022-12-28 14:37 | Operative Report ---
Post Operative Report Pre & Post Diagnosis Operation Date: 12/28/22 11:55 Pre-Op Diagnosis: Neurogenic Claudication due to Lumbar Spinal Stenosis Post-Op Diagnosis: Neurogenic Claudication due to Lumbar Spinal Stenosis I identified the patient and participated in the time-out.: Yes Procedure Operation Date: 12/28/22 11:55 Actual Procedures #1 removal of posterior instrumentation L4-S1. #2 exploration of fusion at L4- S1. #3 lumbar decompression with bilateral medial facetectomies and foraminotomies L1-L2, L2-L3 and L3-L4. #4 posterior spinal fusion L2-L4. #5 placement posterior instrumentation L2-S1. #6 interbody fusion L2-L3 L3-L4. #7 placement of Spira 12 x 26 mm at L2-L3 and 13 x 26 mm at L3-L4. #8 placement locally harvested morselized autograft in the posterior gutters. #9 placement of I factor amount of combined with V toss in the interbody space and posterior lateral gutters. Surgeon Jose M Arevalo, Cold Header Operator Moriah Spencer Estimated Blood Loss 300 Findings Consistent with Post-Op Diagnosis Specimens None Indications This is a 57-year-old female who presents above-mentioned diagnosis after failing extensive course of nonoperative care she is here for surgical invention. Description of Procedure Patient was met with identified informed consent obtained. Patient was then taken to the operative suite underwent intubation placed in a prone position on the Whitney table top Juan frame. All bony prominences well-padded eyes inspected to ensure no external pressure placed upon them. This point the lumbar spine was prepped and draped in normal sterile fashion. Sharp dissection with the assistance of Bovie cautery performed down to and exposing the lamina transverse processes of L2-L3 and instrumentation L4-L5 and S1 levels bilaterally. I then proceeded move the hardware bilaterally explore the fusion mass noting it to be mature and intact. There was a broken pedicle screw of the S1 on the right. Then performed a complete laminectomy of L3 L2 partial laminectomy of L1 including bilateral medial facetectomies and foraminotomies addressing severe spinal stenosis. Pedicle screws were then placed L2 L3-L4-L5 and S1 levels in process yuri contoured and placed. Bilateral transforaminal approach and right complete discectomy of L3-L4 was performed endplates curetted to subcortical bleeding bone and a 13 x 26 mm Spira cage with I factor tapped in position. Then proceeded to L2-L3 and again by way of transforaminal approach and right complete discectomy performed endplates curetted to subcortically bone and a 12 x 26 mm Spira cage with I factor tapped in position. The rods were then locked into final position bilaterally. Transverse processes of L2-L3-L4 burred to subcortical bleeding bone. I factor combined with detox and locally harvested morselized autograft was placed in the posterior gutters. 15 round CLAUDE inserted. Incision was then closed with 1 Vicryl the fascia 2-0 Vicryl subcutaneously and 4 Monocryl for final skin closure. Steri-Strips sterile dressings placed. Patient waken taken to PACU in stable condition. Please note spinal cord monitoring utilized at the procedure no changes noted. Lastly Moriah Spencer was present at the entire procedure and all the patient positioning complex portion of the surgery and final skin closure. I attest to the content of the Intraoperative Record and any orders documented therein. Any exceptions are noted below.
[2022-12-28] MEDS: fentaNYL citrate PF 100 MCG/2 ML VIAL IV PRN ×2 (15:30→15:35)
--- NOTE | 2022-12-28 15:30 | Fluoroscopy Report ---
INTRAOPERATIVE RADIOGRAPHS CLINICAL HISTORY: Lumbar spinal fusion surgery. Fluoro time: 18 seconds. Exposure: 9.96 mGy FINDINGS: 2 spot fluoroscopic views of the lumbar spine are presented. There has been discectomy at L 2-L3, L3-L4, L4-L5, and L5-S1 with laminectomy and posterior fusion seen from L2-S1. Interpedicular s crews are present at all levels. A screw fragment is noted within the right aspect of S1. IMPRESSION: Intraoperative images from lumbar spinal fusion surgery as above. Electronically signed by: Joshua Pitt M.D. 12/28/2022 3:29 PM
--- NOTE | 2022-12-28 15:50 | Anesthesiology Progress Note ---
Date of Service December 28, 2022 Anesthesia Post Procedure Vital Signs Vital Signs: Temp Pulse Pulse Resp BP Pulse Ox O2 Del Method 12/28/22 15:45 78 13 103/48 L 93 Nasal Cannula 12/28/22 15:15 71 18 116/57 L 96 Oxymask 12/28/22 15:35 69 12 107/49 L 97 Nasal Cannula 12/28/22 15:25 74 17 113/58 L 92 Room Air 12/28/22 15:05 78 19 112/59 L 98 Oxymask 12/28/22 14:58 36.1 C L 70 13 115/55 L 98 Oxymask 12/28/22 11:10 36.7 C 74 18 113/54 L 96 Room Air O2 Flow Rate 12/28/22 15:45 2 12/28/22 15:15 4 12/28/22 15:35 2 12/28/22 15:25 12/28/22 15:05 7 12/28/22 14:58 7 12/28/22 11:10 Pain Intensity Right Medial Back: Pain Intensity: 5 Transfer of Care Handoff Completed per policy Notes Mental Status: alert / awake / arousable and participated in evaluation Patient Amnestic to Procedure: Yes Nausea / Vomiting: adequately controlled Pain: adequately controlled Airway Patency, RR, SpO2: stable & adequate BP & HR: stable & adequate Hydration State: stable & adequate Anesthetic Complications: no major complications apparent and Pt Satisfied with anesthetic care
[2022-12-28] MEDS ORDERED: DO NOT ADMINISTER FLU VACCINE PRN (16:18)
[2022-12-28] MEDS ORDERED: ALBUTEROL HFA 8 GM INHALER INH PRN (16:18)
[2022-12-28] MEDS ORDERED: METOCLOPRAMIDE HCL INJ 5 MG/ML 2 ML VIAL IV PRN (16:18)
[2022-12-28] MEDS ORDERED: ONDANSETRON 4 MG OD TAB PO PRN (16:18)
[2022-12-28] MEDS ORDERED: hydrOXYzine HCl 25 MG TAB PO PRN (16:18)
[2022-12-28] MEDS ORDERED: LORazepam 0.5 MG TAB PO PRN (16:18)
[2022-12-28] MEDS ORDERED: HYDROmorphone INJ 0.5 MG/0.5 ML SYR IV PRN (16:18)
[2022-12-28] MEDS ORDERED: LORazepam 2 MG/1 ML VIAL IV PRN (16:18)
[2022-12-28] MEDS ORDERED: MAGNESIUM HYDROXIDE SUSP 30 ML UDC PO PRN (16:18)
[2022-12-28] MEDS ORDERED: ALUMINUM/MAGNESIUM SUSP 30 ML UDC PO PRN (16:18)
[2022-12-28] MEDS ORDERED: NALOXONE HCL 0.4 MG/1 ML VIAL/CARP IV PRN (16:18)
[2022-12-28] MEDS ORDERED: DO NOT ADMINISTER PNEUMOCOCCAL VACCINE PRN (16:18)
[2022-12-28] MEDS ORDERED: FAMOTIDINE 20 MG TAB PO PRN (16:18)
[2022-12-28] MEDS ORDERED: bisacodyL 10 MG SUPP PR PRN (16:18)
[2022-12-28] MEDS ORDERED: ACETAMINOPHEN 1,000 MG/100 ML VIAL IV PRN (16:18)
[2022-12-28] MEDS ORDERED: PHARMACY GLYCEMIC MGMT CONSULT PRN (16:18)
[2022-12-28] MEDS ORDERED: NON-FORMULARY MEDICATION (Iron,Carbonyl-Vitamin C [Vitron-C] 65 mg iron- 125 mg tablet,del PO SCH (16:18)
[2022-12-28] MEDS ORDERED: diphenhydrAMINE Capsule 25 MG CAP PO PRN (16:18)
[2022-12-28] MEDS ORDERED: ACETAMINOPHEN 500 MG TAB PO PRN (16:18)
[2022-12-28] MEDS ORDERED: SOD PHOSPHATE/SOD BIPHOSPHATE ENEMA 132 ML BTL PR PRN (16:18)
[2022-12-28] MEDS ORDERED: NON-FORMULARY MEDICATION (Ondansetron Hcl 8 mg Tablet) PO PRN (16:18)
[2022-12-28] MEDS: LACTATED RINGER'S 1,000 ML IV SCH (16:43)
[2022-12-28] MEDS: oxyCODONE HCL IR 5 MG TAB (IMMEDIATE RELEASE) PO PRN ×2 (16:52→21:43)
[2022-12-28] MEDS ORDERED: INSULIN ASPART 100 UNITS/ML VIAL SC SCH (17:00)
[2022-12-28] MEDS: INSULIN ASPART PER UNIT CHARGE SC SCH ×2 (18:10→22:03)
[2022-12-28] MEDS ORDERED: LANTUS PER UNIT CHARGE SQ SCH (21:00)
[2022-12-28] MEDS: DOCUSATE SODIUM/SENNA 50/8.6MG TAB PO SCH (21:44)
[2022-12-28] MEDS: busPIRone 15 MG TAB PO SCH (21:44)
[2022-12-28] MEDS: ESCITALOPRAM OXALATE 20 MG TAB PO SCH (21:44)
[2022-12-28] MEDS: PREGABALIN 100 MG CAP PO SCH (22:03)
[2022-12-28] MEDS: ceFAZolin 2000MG 2,000 MG/15 ML SYR IV SCH (22:03)
[2022-12-29] MEDS: LACTATED RINGER'S 1,000 ML IV SCH (02:40)
[2022-12-29] MEDS: HYDROmorphone INJ 1 MG/ML SYRINGE IV PRN ×2 (02:44→23:48)
[2022-12-29] MEDS: ceFAZolin 2000MG 2,000 MG/15 ML SYR IV SCH (06:16)
[2022-12-29] MEDS: POLYETHYLENE (MIRALAX) 17 GM PACK PO SCH ×4 (06:16→23:48)
[2022-12-29] MEDS: LEVOTHYROXINE SODIUM 100 MCG TABLET PO SCH (06:16)
[2022-12-29 06:51] LABS: Basophils # (auto) 0.01 K/uL (0-0.2); Basophils % (auto) 0.1 %; Eosinophils # (auto) 0.01 K/uL (0-0.50); Eosinophils % (auto) 0.1 %; Hematocrit (blood only) 30.8 % (37.0-47.0); Hemoglobin 9.9 g/dl (12.0-16.0); Immature Granulocytes # (auto) 0.05 K/uL (0.01-0.20); Immature Granulocytes % (auto) 0.5 %; Lymphocytes # (auto) 1.22 K/uL (1.2-3.4); Lymphocytes % (auto) 11.9 %; Mean Corpuscular Hemoglobin 32.2 pg (25.0-34.0); Mean Corpuscular Hgb Conc 32.1 g/dL (32.0-36.0); Mean Corpuscular Volume 100.3 fL (80.0-100.0); Mean Platelet Volume 11.8 fL (9.4-12.4); Monocytes # (auto) 0.91 K/uL (0.11-0.59); Monocytes % (auto) 8.8 %; Neutrophils # (auto) 8.09 K/uL (1.40-6.50); Neutrophils % (auto) 78.6 %; Platelet Count 258 K/uL (130-400); RDW Standard Deviation 47.8 fL (36.4-46.3); Red Blood Count 3.07 M/uL (4.20-5.40); White Blood Count 10.29 K/ul (4.8-10.8)
[2022-12-29 07:05] LABS: BUN Creatinine Ratio 16.5 (10-20); Calcium 8.5 mg/dl (8.5-10.1); Creatinine Clr Calc Pharmacy 81.9 ml/min; Est GFR (African American) 89.4 ml/min; Est GFR (Non-African American) 77.1 ml/min; Potassium 4.5 mmol/L (3.5-5.1)
--- NOTE | 2022-12-29 07:36 | Hospitalist Consultation ---
Date of Consultation December 29, 2022 Assessment & Plan (1) Neurogenic claudication due to lumbar spinal stenosis: POD#1 s/p #1 removal of posterior instrumentation L4-S1. #2 exploration of fusion at L4-S1. #3 lumbar decompression with bilateral medial facetectomies and foraminotomies L1-L2, L2-L3 and L3-L4. #4 posterior spinal fusion L2-L4. #5 placement posterior instrumentation L2-S1. #6 interbody fusion L2-L3 L3-L4. #7 placement of Spira 12 x 26 mm at L2-L3 and 13 x 26 mm at L3-L4. #8 placement locally harvested morselized autograft in the posterior gutters. #9 placement of I factor amount of combined with V toss in the interbody space and posterior lateral gutters. WBC wnl, elevation 2nd to steroids. Afebrile Hgb 13--> 9.9, acute blood loss from surgery (EBL 300cc, CLAUDE output 150cc thus far), also suspect some aspect of dilution from IVF post op Ok w/ primary to resume ASA 325mg for today Pain control/bowel regimen/PT/OT per primary service GERD -- PPI while inpatient Hypothyroidism -- Continue levothyroxine 100mcg daily Pre-DM -- pharmacy on consult. RN to hold AM dose 5u given BSG <100 and will monitor Narcolepsy - continue provigil Depression/Migraines - continue home meds Holding lasix for this morning given BPs, kidney function stable and likely can resume in AM Dispo: Patient planning for d/c in the next 1-2 days pending progress (2) Chronic migraine: (3) History of iron deficiency: (4) B12 deficiency: (5) Vitamin D deficiency: (6) Sleep apnea: (7) Restless leg syndrome: (8) Narcolepsy: (9) GERD (gastroesophageal reflux disease): (10) Hypothyroidism: Plan Thank you for allowing hospitalist service to participate in the care of Mrs Stoner. Knox ordered to resume tomorrow. Hospitalist service signed off at this time, discussed w/ ortho PA and they will call with any questions/concerns. Supervising Physician Co-Signing Physician Notes The patient was seen by me. The chart was reviewed. Case discussed with GEOVANI Cameron. Agree with assessment and plan History of Present Illness Reason for Consultation: med management Requesting Physician: Dr Arevalo Attending Physician: Jose M Arevalo DO History of Present Illness 57yo female presented with PMHx significant for GERD, hypothyroidism, B12 deficiency, chronic migraine, narcolepsy, depression, presented for lumbar decompression and fusion with Dr Arevaol on 12/28. EBL 300cc. Patient sitting up in chair, talking w/ CM about walker which she may have at home and will check. works, she stays at home and takes care of 3 children. Doing well post-op. Pain controlled. Pain/numbness/tingling resolved. Prior had her legs giving out. Eating/drinking no issues. Passing gas but no BM. Prior back surgery in 2020 and knows what to expect. planning for d/c on Tuesday. No fever/chills, chest pain, shortness of breath, lightheadedness/dizziness, abdominal pain, nausea or vomiting. To d/c mims later today. Questions/concerns addressed at this time. Allergies Allergy/AdvReac Type Severity Reaction Status Date / Time nitrofurantoin Allergy Severe Heart Verified 12/28/22 10:59 failure venom-honey bee Allergy Severe Anaphylaxis Verified 12/28/22 16:36 meperidine Allergy Intermediate Hives, rash Verified 12/28/22 10:59 adhesive tape AdvReac Mild SKIN Verified 12/28/22 16:36 SENSITIVITY Home Medications Medication Instructions Recorded Confirmed Type aspirin 325 mg tablet 325 mg PO QAM 11/26/20 12/28/22 History buspirone 15 mg tablet 15 mg PO BID 11/26/20 12/28/22 History eletriptan 40 mg tablet (Relpax) 40 mg PO UD PRN Migraine Headache 11/26/20 12/28/22 History methylphenidate HCl 5 mg tablet 5 mg PO DAILY 11/26/20 12/28/22 History (Ritalin) modafinil 200 mg tablet (Provigil) 200 mg PO QAM 11/26/20 12/28/22 History ondansetron HCl 8 mg tablet 8 mg PO Q8H PRN Nausea 11/26/20 12/28/22 History montelukast 10 mg tablet 10 mg PO QAM #90 tabs 10/29/21 12/28/22 Rx (Singulair) cholecalciferol (vitamin D3) 25 75 mcg PO DAILY #30 caps 05/03/22 12/28/22 Rx mcg (1,000 unit) capsule iron,carbonyl 65 mg-vitamin C 125 1 tab PO Q OTHER DAY #30 tabs 05/03/22 12/28/22 Rx mg tablet,delayed release (Vitron-C) metformin 500 mg tablet 500 mg PO BID #60 tabs 08/27/22 12/28/22 Rx furosemide 20 mg tablet (Lasix) 20 mg PO QAM #90 tabs 08/31/22 12/28/22 Rx albuterol sulfate 90 mcg/actuation 2 puff inhalation QID PRN SHORT OF 10/06/22 12/28/22 Rx aerosol inhaler (ProAir HFA) BREATH #25.5 grams bupropion HCl 150 mg 24 hr tablet, 150 mg PO QAM 12/07/22 12/28/22 History extended release (Wellbutrin XL) bupropion HCl 300 mg 24 hr tablet, 300 mg PO QAM 12/07/22 12/28/22 History extended release (Wellbutrin XL) escitalopram oxalate 20 mg tablet 20 mg PO QPM 12/07/22 12/28/22 History (Lexapro) levothyroxine 100 mcg tablet 100 mcg PO QAM 12/07/22 12/28/22 History methylphenidate HCl 10 mg tablet 10 mg PO QAM 12/07/22 12/28/22 History pregabalin 100 mg capsule 100 mg PO HS 12/07/22 12/28/22 History sodium oxybate 500 mg/mL oral 4.5 g PO BID 12/07/22 12/28/22 History solution (Xyrem) omeprazole 40 mg capsule,delayed 40 mg PO QAM #90 caps 12/28/22 Rx release Patient History Medical History Anxiety and depression Depression with anxiety Fibromyalgia GERD (gastroesophageal reflux disease) History of COVID-19 09/2021 History of dysphagia Hx esophageal stretching History of heart failure 10+ years ago, antibiotic reaction, no issues since Hx of endometriosis Hypothyroidism Migraine Narcolepsy Post traumatic stress disorder Restless leg syndrome Right internal carotid artery aneurysm Dx 4 years ago > stent placed ([place]) Short of breath on exertion Reason for inhaler per patient Sleep apnea "Mild", CPAP (compliant) Spinal stenosis Temporomandibular joint disorder Surgical History Family history of reaction to anesthesia Brother- awareness H/O bilateral oophorectomy History of anesthesia reaction Awareness History of appendectomy History of arthroscopy Right knee History of blepharoplasty R/L History of bunionectomy Rx1, Lx2 History of carpal tunnel release R/L History of section x1 History of cholecystectomy History of colonoscopy History of endoscopic sinus surgery History of esophagogastroduodenoscopy (EGD) History of hysterectomy History of laparoscopy History of lumbar fusion L3-S1 decompression/fusion (11/29/20): Grade view 1, MAC#3, ETT 7.5, atraumatic at [facility]. No issues noted per post-op anesthesia progress note. History of tonsillectomy and adenoidectomy History of tooth extraction Internal carotid artery stent present Nausea and vomiting after administration of anesthetic agent Family History Sister Family history of diabetes mellitus Grandmother (Maternal) Family history of diabetes mellitus Grandfather (Paternal) Family hx of colon cancer Mother Hypertension Social History Smoking Status: Former smoker Smoking End Date: Quit 06/2014; Second Hand Exposure: No; Do You Dip or Chew Tobacco: No; Tobacco Cessation Education Requested by Patient: No Hx Alcohol Use: Yes Hx Substance Use: No Preferred Language: Malagasy Communication Ability: Effective Issuer Required: No Beliefs That Will Affect Care: None marital status: Current Living Situation: Spouse Other Information That Helps Us Care for You: No Feels Safe at Home: Yes Safety Concerns: Feels Safe At This Time Assistive Devices: Walker Assistive Devices Comment: right foot boot Review of Systems Review of Systems: All systems reviewed & are unremarkable except as noted in HPI & below Physical Exam Physical Exam: General: WD/WN female sitting up in recliner chair, NAD HEENT: head normocephalic, atraumatic, mmm, trachea midline Resp: CTAB ,no w/c, on room air CV: RRR, no significant m/r/g, no pitting edema GI: +BS, soft/NT : mims draining clear yellow urine MSK/Neuro: dressing c/d/i, CLAUDE w/ bloody output, NVI, pulses palpable, strength equal B/L LE Psych: AOx3, pleasant and cooperative Results & Data Results & Data Vital Signs (Past 12 Hours) Vital Signs Temp Pulse Resp BP BP Pulse Ox O2 Del Method 12/29/22 07:21 36.6 C 71 16 95/62 L 94 Room Air 12/29/22 02:48 36.9 C 79 18 99/61 L 93 Room Air 12/28/22 22:13 36.7 C 74 16 92/59 L 97/59 L 94 Room Air 12/28/22 22:08 95 Room Air Laboratory Results 12/29/22 12/29/22 12/29/22 Range/Units 08:06 05:34 05:34 WBC 10.29 (4.8-10.8) K/ul RBC 3.07 L (4.20-5.40) M/uL Hgb 9.9 L (12.0-16.0) g/dl Hct 30.8 L (37.0-47.0) % MCV 100.3 H (80.0-100.0) fL MCH 32.2 (25.0-34.0) pg MCHC 32.1 (32.0-36.0) g/dL RDW Std Deviation 47.8 H (36.4-46.3) fL RDW Coeff of Cici 13.0 (11.5-14.5) % Plt Count 258 (130-400) K/uL MPV 11.8 (9.4-12.4) fL Immature Gran % (Auto) 0.5 % Neut % (Auto) 78.6 % Lymph % (Auto) 11.9 % [place] % (Auto) 8.8 % Eos % (Auto) 0.1 % Baso % (Auto) 0.1 % Neut # (Auto) 8.09 H (1.40-6.50) K/uL Lymph # (Auto) 1.22 (1.2-3.4) K/uL [place] # (Auto) 0.91 H (0.11-0.59) K/uL Eos # (Auto) 0.01 (0-0.50) K/uL Baso # (Auto) 0.01 (0-0.2) K/uL Immature Gran # (Auto) 0.05 (0.01-0.20) K/uL Sodium 140 (136-145) mmol/L Potassium 4.5 (3.5-5.1) mmol/L Chloride 107 (98-107) mmol/L Carbon Dioxide 27 (21-32) mmol/L Anion Gap 6 (3-11) BUN 14 (6-23) mg/dl Creatinine 0.85 (0.6-1.2) mg/dl Est Cr Clr Drug Dosing 81.9 ml/min Est GFR ( Amer) 89.4 ml/min Est GFR (Non-Af Amer) 77.1 ml/min BUN/Creatinine Ratio 16.5 (10-20) Glucose 98 (70-99(Fasting)) mg/dl POC Glucose 99 (70-99) mg/dl Calcium 8.5 (8.5-10.1) mg/dl SARS-CoV-2, RNA, NAAT (NEGATIVE) Blood Type Antibody Screen Crossmatch 12/28/22 12/28/22 12/28/22 Range/Units 20:29 17:18 10:52 WBC (4.8-10.8) K/ul RBC (4.20-5.40) M/uL Hgb (12.0-16.0) g/dl Hct (37.0-47.0) % MCV (80.0-100.0) fL MCH (25.0-34.0) pg MCHC (32.0-36.0) g/dL RDW Std Deviation (36.4-46.3) fL RDW Coeff of Cici (11.5-14.5) % Plt Count (130-400) K/uL MPV (9.4-12.4) fL Immature Gran % (Auto) % Neut % (Auto) % Lymph % (Auto) % [place] % (Auto) % Eos % (Auto) % Baso % (Auto) % Neut # (Auto) (1.40-6.50) K/uL Lymph # (Auto) (1.2-3.4) K/uL [place] # (Auto) (0.11-0.59) K/uL Eos # (Auto) (0-0.50) K/uL Baso # (Auto) (0-0.2) K/uL Immature Gran # (Auto) (0.01-0.20) K/uL Sodium (136-145) mmol/L Potassium (3.5-5.1) mmol/L Chloride (98-107) mmol/L Carbon Dioxide (21-32) mmol/L Anion Gap (3-11) BUN (6-23) mg/dl Creatinine (0.6-1.2) mg/dl Est Cr Clr Drug Dosing ml/min Est GFR ( Amer) ml/min Est GFR (Non-Af Amer) ml/min BUN/Creatinine Ratio (10-20) Glucose (70-99(Fasting)) mg/dl POC Glucose 131 H 124 H (70-99) mg/dl Calcium (8.5-10.1) mg/dl SARS-CoV-2, RNA, NAAT (NEGATIVE) Blood Type O Positive Antibody Screen NEGATIVE Crossmatch See Detail 12/28/22 Range/Units 10:36 WBC (4.8-10.8) K/ul RBC (4.20-5.40) M/uL Hgb (12.0-16.0) g/dl Hct (37.0-47.0) % MCV (80.0-100.0) fL MCH (25.0-34.0) pg MCHC (32.0-36.0) g/dL RDW Std Deviation (36.4-46.3) fL RDW Coeff of Cici (11.5-14.5) % Plt Count (130-400) K/uL MPV (9.4-12.4) fL Immature Gran % (Auto) % Neut % (Auto) % Lymph % (Auto) % [place] % (Auto) % Eos % (Auto) % Baso % (Auto) % Neut # (Auto) (1.40-6.50) K/uL Lymph # (Auto) (1.2-3.4) K/uL [place] # (Auto) (0.11-0.59) K/uL Eos # (Auto) (0-0.50) K/uL Baso # (Auto) (0-0.2) K/uL Immature Gran # (Auto) (0.01-0.20) K/uL Sodium (136-145) mmol/L Potassium (3.5-5.1) mmol/L Chloride (98-107) mmol/L Carbon Dioxide (21-32) mmol/L Anion Gap (3-11) BUN (6-23) mg/dl Creatinine (0.6-1.2) mg/dl Est Cr Clr Drug Dosing ml/min Est GFR ( Amer) ml/min Est GFR (Non-Af Amer) ml/min BUN/Creatinine Ratio (10-20) Glucose (70-99(Fasting)) mg/dl POC Glucose (70-99) mg/dl Calcium (8.5-10.1) mg/dl SARS-CoV-2, RNA, NAAT NEGATIVE (NEGATIVE) Blood Type Antibody Screen Crossmatch Diagnostic Findings Lumbar Spine X-Ray 12/28/22 11:55 INTRAOPERATIVE RADIOGRAPHS CLINICAL HISTORY: Lumbar spinal fusion surgery. Fluoro time: 18 seconds. Exposure: 9.96 mGy FINDINGS: 2 spot fluoroscopic views of the lumbar spine are presented. There has been discectomy at L2-L3, L3-L4, L4-L5, and L5-S1 with laminectomy and posterior fusion seen from L2-S1. Interpedicular screws are present at all levels. A screw fragment is noted within the right aspect of S1. IMPRESSION: Intraoperative images from lumbar spinal fusion surgery as above. Electronically signed by: Joshua Pitt M.D. 12/28/2022 3:29 PM PG Care Time/CCT Total # of Minutes Spent Total Time Spent with Patient: Total time spent is greater than 50% in coordination of care (as documented) at patient's floor/unit and/or counseling patient: Coding Level of Care Code 22367 IN/OBS CONSULT LVL 3,45M Diagnoses Neurogenic claudication due to lumbar spinal stenosis M48.062 Chronic migraine History of iron deficiency Z86.39 B12 deficiency E53.8 Vitamin D deficiency E55.9 Sleep apnea G47.30 Restless leg syndrome G25.81 Narcolepsy G47.419 GERD (gastroesophageal reflux disease) K21.9 Hypothyroidism E03.9
[2022-12-29] MEDS: oxyCODONE HCL IR 5 MG TAB (IMMEDIATE RELEASE) PO PRN ×3 (08:18→16:53)
[2022-12-29] MEDS: buPROPion XL 300 MG TABCR PO SCH (08:19)
[2022-12-29] MEDS: buPROPion XL 150 MG TABCR PO SCH (08:19)
[2022-12-29] MEDS: PANTOprazole 40 MG TAB PO SCH (08:20)
[2022-12-29] MEDS: MONTELUKAST SODIUM 10 MG TABLET PO SCH (08:20)
[2022-12-29] MEDS: busPIRone 15 MG TAB PO SCH ×2 (08:20→21:32)
[2022-12-29] MEDS: CHOLECALCIFEROL 1,000 UNITS 25 MCG TAB PO SCH (08:20)
[2022-12-29] MEDS: dexAMETHasone 6 MG in SYRINGE 0 ML IV SCH (08:21)
[2022-12-29] MEDS: METHYLPHENIDATE HCL 10 MG TABLET PO SCH ×2 (08:24→12:56)
[2022-12-29] MEDS: modafiniL 100 MG TAB PO SCH (08:24)
--- NOTE | 2022-12-29 08:25 | Orthopedic Progress Note ---
Date of Service December 29, 2022 Assessment & Plan (1) Neurogenic claudication due to lumbar spinal stenosis: Plan: Ashley is postoperative 1 status post hard removal L4-S1, decompression L2-3 and L3-4 and instrumented fusion L2-S1. She will start physical therapy today. Maintain CLAUDE drain. Continue with pain control. Continue with aggressive bowel regimen. Anticipate discharge home within the next day or 2. Admission and Anticipated Discharge Date Admission Date: December 28, 2022 Subjective Ashley is postoperative day 1 status post hardware removal L4-S1, decompression L2-3 and L3-4 and instrumented fusion L2-S1. She had an uneventful evening. CLAUDE drain output last shift is 110 cc. H&H this morning are 9.9 and 30.8 respectively. Denies any leg or back pain this morning. Review of Systems Review of Systems: All systems reviewed & are unremarkable except as noted in HPI & below Physical Exam Physical Exam: She sitting in a chair in no acute distress Alert and oriented x3 Lumbar dressing is clean dry intact with functioning CLAUDE drain Strength is intact bilateral lower extremities JRODON hose intact bilateral lower extremities Calf soft nontender bilaterally Results & Data Vital Signs (Past 12 Hours) Vital Signs Temp Pulse Resp BP BP Pulse Ox O2 Del Method 12/29/22 07:21 36.6 C 71 16 95/62 L 94 Room Air 12/29/22 02:48 36.9 C 79 18 99/61 L 93 Room Air 12/28/22 22:13 36.7 C 74 16 92/59 L 97/59 L 94 Room Air 12/28/22 22:08 95 Room Air
[2022-12-29] MEDS: INSULIN ASPART PER UNIT CHARGE SC SCH ×4 (08:31→22:00)
[2022-12-29] MEDS ORDERED: ASPIRIN 325 MG ECTAB PO ONE (09:30)
[2022-12-29 11:36] LABS: Estimated Average Glucose 114 mg/dl; Hemoglobin A1C 5.6 % (4.5-5.6)
--- NOTE | 2022-12-29 14:08 | Pharmacy Report ---
Pharmacy Glycemic Sign Off Nt - Date of Service December 29, 2022 - Assessment & Plan ASSESSMENT: * Pharmacy was consulted by Dr Arevalo on 12/28/22 for glycemic control and to write orders per [facility] inpatient glycemic control protocol. * Major changes made by pharmacy to antidiabetic regimen include: * Giving Lantus 5 units x 1 dose yesterday, starting Novolog ACHS, CF 30, CR9 * A1c 5.6%, receiving Dexamethasone 6mg IV daily * Patient has been receiving/requiring 7 units of insulin per day for adequate glycemic control * BSGs ranging 98 -131 mg/dl * Regimen has only required minor adjustments over the past 24hrs to achieve this level of control * Do not anticipate further changes in patient status that would quickly deteriorate glycemic control (i.e. patient to be NPO for upcoming procedure, steroids tapering, starting tube feedings, etc). * Patient also refusing insulin coverage for carbs today at lunch. * Please see recommendations for outpatient antidiabetic regimen below. PLAN FOR INPATIENT GLYCEMIC CONTROL: No changes needed to current regimen. * No further basal * Continue NovoLog per scale ACHS/Q6hrs while NPO * Goal range = 110-140 mg/dl * CF = 30 mg/dl/unit * CR = 1 unit for ever 9 g CHO consumed * Pharmacy is signing off of glycemic consult and will no longer be making adjustments to inpatient regimen. Please feel free to re-consult if needed. Thank you.
[2022-12-29] MEDS: traMADol HCL 50 MG TABLET PO PRN (17:54)
[2022-12-29] MEDS: ESCITALOPRAM OXALATE 20 MG TAB PO SCH (21:32)
[2022-12-29] MEDS: PREGABALIN 100 MG CAP PO SCH (21:32)
[2022-12-29] MEDS: DOCUSATE SODIUM/SENNA 50/8.6MG TAB PO SCH (21:32)
[2022-12-30] MEDS: LEVOTHYROXINE SODIUM 100 MCG TABLET PO SCH (06:12)
[2022-12-30] MEDS: POLYETHYLENE (MIRALAX) 17 GM PACK PO SCH ×3 (06:12→17:47)
[2022-12-30] MEDS: oxyCODONE HCL IR 5 MG TAB (IMMEDIATE RELEASE) PO PRN ×2 (06:12→16:29)
[2022-12-30 07:59] LABS: Hematocrit (blood only) 27.9 % (37.0-47.0); Hemoglobin 8.9 g/dl (12.0-16.0); Mean Corpuscular Hemoglobin 32.2 pg (25.0-34.0); Mean Corpuscular Hgb Conc 31.9 g/dL (32.0-36.0); Mean Corpuscular Volume 101.1 fL (80.0-100.0); Mean Platelet Volume 11.6 fL (9.4-12.4); Platelet Count 221 K/uL (130-400); RDW Coefficient of Variation 13.2 % (11.5-14.5); RDW Standard Deviation 48.6 fL (36.4-46.3); Red Blood Count 2.76 M/uL (4.20-5.40); White Blood Count 8.29 K/ul (4.8-10.8)
[2022-12-30 08:06] LABS: BUN Creatinine Ratio 20.6 (10-20); Calcium 8.3 mg/dl (8.6-10.3); Creatinine Clr Calc Pharmacy 71.7 ml/min; Est GFR (African American) 76.2 ml/min; Est GFR (Non-African American) 65.8 ml/min; Potassium 3.9 mmol/L (3.5-5.1)
[2022-12-30] MEDS: PANTOprazole 40 MG TAB PO SCH (08:14)
[2022-12-30] MEDS: busPIRone 15 MG TAB PO SCH ×2 (08:14→21:33)
[2022-12-30] MEDS: buPROPion XL 300 MG TABCR PO SCH (08:14)
[2022-12-30] MEDS: MONTELUKAST SODIUM 10 MG TABLET PO SCH (08:14)
[2022-12-30] MEDS: CHOLECALCIFEROL 1,000 UNITS 25 MCG TAB PO SCH (08:15)
[2022-12-30] MEDS: ASPIRIN 325 MG ECTAB PO SCH (08:15)
[2022-12-30] MEDS: dexAMETHasone 6 MG in SYRINGE 0 ML IV SCH (08:15)
[2022-12-30] MEDS: buPROPion XL 150 MG TABCR PO SCH (08:15)
--- NOTE | 2022-12-30 08:18 | Orthopedic Progress Note ---
Date of Service December 30, 2022 Assessment & Plan (1) Neurogenic claudication due to lumbar spinal stenosis: Plan: This time continue physical therapy monitor her CLAUDE output hopefully discharge home tomorrow. Admission and Anticipated Discharge Date Admission Date: December 28, 2022 Subjective Back pain controlled leg pain improved Physical Exam Physical Exam: Patient is in the chair at the bedside. She is distracted testing. Peers comfortable. Results & Data Vital Signs (Past 12 Hours) Vital Signs Temp Pulse Pulse Resp BP Pulse Ox O2 Del Method 12/30/22 07:38 36.7 C 68 16 95/58 L 96 Room Air 12/29/22 22:24 36.8 C 78 16 97/61 L 96 Room Air
[2022-12-30] MEDS: traMADol HCL 50 MG TABLET PO PRN ×2 (08:21→21:33)
[2022-12-30] MEDS: METHYLPHENIDATE HCL 10 MG TABLET PO SCH ×2 (08:21→14:20)
[2022-12-30] MEDS: modafiniL 100 MG TAB PO SCH (08:21)
[2022-12-30] MEDS: INSULIN ASPART PER UNIT CHARGE SC SCH (08:30)
[2022-12-30] MEDS: FUROSEMIDE 20 MG TAB PO SCH (11:34)
[2022-12-30] MEDS: ESCITALOPRAM OXALATE 20 MG TAB PO SCH (21:33)
[2022-12-30] MEDS: DOCUSATE SODIUM/SENNA 50/8.6MG TAB PO SCH (21:33)
[2022-12-30] MEDS: PREGABALIN 100 MG CAP PO SCH (21:33)
[2022-12-31] MEDS: LEVOTHYROXINE SODIUM 100 MCG TABLET PO SCH (06:08)
[2022-12-31] MEDS: oxyCODONE HCL IR 5 MG TAB (IMMEDIATE RELEASE) PO PRN (06:12)
[2022-12-31] MEDS: PANTOprazole 40 MG TAB PO SCH (07:26)
[2022-12-31] MEDS: ASPIRIN 325 MG ECTAB PO SCH (07:26)
[2022-12-31] MEDS: buPROPion XL 300 MG TABCR PO SCH (07:26)
[2022-12-31] MEDS: busPIRone 15 MG TAB PO SCH (07:26)
[2022-12-31] MEDS: FUROSEMIDE 20 MG TAB PO SCH (07:26)
[2022-12-31] MEDS: buPROPion XL 150 MG TABCR PO SCH (07:26)
[2022-12-31] MEDS: MONTELUKAST SODIUM 10 MG TABLET PO SCH (07:26)
[2022-12-31] MEDS: dexAMETHasone 6 MG in SYRINGE 0 ML IV SCH (07:27)
[2022-12-31] MEDS: modafiniL 100 MG TAB PO SCH (07:31)
[2022-12-31] MEDS: traMADol HCL 50 MG TABLET PO PRN (07:31)
[2022-12-31] MEDS: METHYLPHENIDATE HCL 10 MG TABLET PO SCH (07:31)
[2022-12-31] MEDS ORDERED: FOLIC ACID 1 MG TAB PO SCH (09:00)
[2022-12-31] MEDS: CHOLECALCIFEROL 1,000 UNITS 25 MCG TAB PO SCH (09:33)
--- NOTE | 2022-12-31 10:10 | Discharge Summary ---
Date of Service December 31, 2022 Admission HPI Per Admitting Provider This is a 57-year-old female who presents with chronic persistent back and leg pain after failing course of nonoperative care she is here for surgical intervention. Principal Diagnosis Lumbar spinal stenosis with neurogenic claudication Discharge Data Allergies Allergy/AdvReac Type Severity Reaction Status Date / Time nitrofurantoin Allergy Severe Heart Verified 12/28/22 10:59 failure venom-honey bee Allergy Severe Anaphylaxis Verified 12/28/22 16:36 meperidine Allergy Intermediate Hives, rash Verified 12/28/22 10:59 adhesive tape AdvReac Mild SKIN Verified 12/28/22 16:36 SENSITIVITY Consultations 12/28/22 16:18 Consult Hospitalist Routine Procedures Performed Operation Date: 12/28/22 11:55 Actual Procedures p L2-L3 Decompression, L2-S1 Fusion,Spinal Cord Monitoring(Not Applicable) - Jose M Arevalo DO s L4-L5 Hardware Removal, (Not Applicable) - Jose M Arevalo DO Ordered Studies 12/28/22 11:55 FL lumbar spine 2-3V Routine Hospital Course (1) Neurogenic claudication due to lumbar spinal stenosis: Patient went lumbar decompression fusion tolerated so was taken to orthopedic for postop labor postop day 1 she was up and ambulating progress postop day #2 and postoperative 3 CLAUDE drain decreased appropriate. Excellent strength testing. Pain well controlled. Subsequent discharge home. Discharge orders and instructions found in chart for further review. Total Time Total Time Spent Total Time Spent (In Minutes): 20 minutes Discharge Plan Discharge Items Patient Disposition: Home - Self-Care Reason For Visit: POSTOP Discharge Diagnosis: Lumbar spine stenosis with neurogenic claudication Activity: As commented below Non-emergency contact: Primary Care Provider Call non-emergency contact if: you have any medication questions Follow-up/Referrals: Jackie Irwin DO [Primary Care Provider] - Diet: Regular Addtl Attending Provider Instructions: ACTIVITY RECOMMENDATIONS: SELF CARE INSTRUCTIONS AFTER THORACIC/LUMBAR FUSIONS 1. You may walk to your tolerance. It is good exercise for your legs and back. Expect some back and intermittent leg aches and pains. 2. You may perform "counter-top" level activities (make a sandwich, francoise with a project, etc.). 3. No bending or lifting of more than 10 pounds or back twisting of any nature (roll like a log when turning in bed). 4. You may ride in a car for 20-30 minutes at a time. No driving until after your first visit with your doctor. 5. Frequent changes of position and restricting sitting to 30 minutes at a time will help limit the amount of back spasms and stiffness you may experience. 6. You may discontinue the use of ambulatory aids (cane, crutches, etc.) once your strength and confidence allow. 7. You may accounting methods analyst the shower and let water strike your incision when you arrive home at least once daily. Do not take a tub bath, sit in a hot tub or go into a swimming pool until after your first recheck in the office. SPECIAL CARE INSTRUCTIONS: VERY IMPORTANT TO READ AND REVIEW A. Your surgical incision has been closed with a cosmetic suture under the skin that will dissolve in about 6 weeks. In 14 days, you can use a pair of clean scissors and cut the suture that is left outside of the skin at the ends of your incision. 1. The small skin tapes can be removed 7 days after surgery if they have not fallen off by that point. 2. You may keep the wound open to air as much as possible to promote healing after post-op day number 5 unless told otherwise by your doctor. 3. If you think the wound looks like it is becoming infected (redness or worsening drainage) and/or you are experiencing fever, chill or worsening back pain and muscle spasms, contact the office so that we may evaluate you as soon as possible. B. Complications are uncommon, but please contact us if you have any signs or symptoms of: 1. wound infection (fever higher than 102.5 degrees F, redness, separation of wound, drainage, or increasing pain from the incision) 2. blood clots in legs (pain, swelling, redness and warmth in legs) 3. urinary tract infection (fever higher than 102.5 degrees F, burning upon urination or increased frequency of urination) 4. nerve problems (inability to walk on your toes or heels, numbness, loss of bowel or bladder control) 5. any other symptoms that concern you C. Please call the office at if you have any concerns or questions about your operation or recovery. D. No smoking! Smoking drastically decreases the chance of a solid fusion. E. Do not take any anti-inflammatory medications (Indocin, Advil, Motrin, Aspirin, Naprosyn, etc.) as these may inhibit the chance of a solid fusion. Tylenol is okay to take for pain. MANAGING PAIN AFTER SPINAL SURGERY 1. Narcotic medication is intended for short-term use and will be provided for surgical pain. Surgical pain usually lasts for a period of 4-6 weeks. Narcotic medication includes Percocet, Vicodin, Darvocet, Tylenol #3 or Lortab. 2. Longer-term pain is more appropriately treated with non-narcotic medication such as Tylenol ES. 3. Muscle spasm is not appropriately treated with narcotics. Muscle relaxers such as Soma, Flexeril or Skelaxin can be used along with Tylenol ES. 4. Remember that we all live with some "aches and pains". This is not unusual or uncommon after an injury or as we get older. a. Back pain is expected and may include muscle spasms for 4 to 6 weeks after surgery. The pain should gradually improve. If the pain worsens for no apparent reason, please contact the office. b. Intermittent leg pain may also be experienced and should not be concerned about unless it worsens for no apparent reason. If so, please contact the office. 5. We will provide appropriate medication within the normal guidelines of their prescribed use. We will also be very cautious and aware of potential abuse and extended duration of patients' medication needs. a. Pain medications are for your comfort and to assist with sleep and rest so that the tissue can heal. They are not provided in order to return to normal activity and should not be used through the day. To do so or worsening pain at night can result from ongoing tissue damage and development of tolerance to the prescribed medicine. 6. Please allow 2-3 days to process refills. Prescriptions will not be mailed but must be picked up at the office. FOLLOW UP VISIT: Keep your scheduled follow-up appointment. Any questions, please call the office at . Addtl Tooling Supervisor Provider Instructions: Your folate level was checked due to anemia and MCV level on the larger size. B12 was previously not low but folate is borderline and recommend you be on daily supplementation to help with blood counts. Pending Studies at Discharge: No Stand-Alone Forms: [employer], Smoking Cessation Medications and DC Order Prescriptions: New tramadol 50 mg tablet 50 mg PO Q6H PRN (Reason: pain, moderate) Qty: 30 0RF oxycodone 5 mg tablet 5 mg PO Q6H PRN (Reason: pain, severe) Qty: 30 0RF folic acid 1 mg tablet 1,000 mcg PO DAILY Qty: 30 0RF Continued montelukast [Singulair] 10 mg tablet 10 mg PO QAM Qty: 90 1RF cholecalciferol (vitamin D3) 25 mcg (1,000 unit) capsule 75 mcg PO DAILY Qty: 30 0RF Vitron-C 65 mg iron- 125 mg tablet,delayed release (DR/EC) 1 tab PO Q OTHER DAY Qty: 30 0RF furosemide [Lasix] 20 mg tablet 20 mg PO QAM Qty: 90 1RF albuterol sulfate [ProAir HFA] 90 mcg/actuation HFA aerosol inhaler 2 puff INHALATION QID PRN (Reason: SHORT OF BREATH) Qty: 25.5 1RF omeprazole 40 mg capsule,delayed release(DR/EC) 40 mg PO QAM Qty: 90 1RF metformin 500 mg tablet 500 mg PO BID Qty: 60 2RF aspirin 325 mg Tablet 325 mg PO QAM Rx Instructions: will check with her aneurysm doctor to see if she needs to hold or decrease t o 81 mg. ondansetron HCl 8 mg Tablet 8 mg PO Q8H PRN (Reason: Nausea) methylphenidate HCl [Ritalin] 5 mg Tablet 5 mg PO DAILY Patient Comments: TAKES AT LUNCH modafinil [Provigil] 200 mg Tablet 200 mg PO QAM Patient Comments: TAKES AT 1500 buspirone 15 mg Tablet 15 mg PO BID eletriptan [Relpax] 40 mg Tablet 40 mg PO UD PRN (Reason: Migraine Headache) methylphenidate HCl 10 mg Tablet 10 mg PO QAM escitalopram oxalate [Lexapro] 20 mg Tablet 20 mg PO QPM bupropion HCl [Wellbutrin XL] 300 mg Tablet Extended Release 24 Hr 300 mg PO QAM bupropion HCl [Wellbutrin XL] 150 mg Tablet Extended Release 24 Hr 150 mg PO QAM Rx Instructions: takes with 300 to total 450a day pregabalin 100 mg Capsule 100 mg PO HS levothyroxine 100 mcg tablet 100 mcg PO QAM sodium oxybate [Xyrem] 500 mg/mL Solution 4.5 g PO BID Rx Instructions: administer the first dose at bedtime and the second dose 2.5-4 hours later Discharge Orders: Discharge Order (Routine); Ordered 12/31/22 Ordered By: Jose M Arevalo Admission Data Admit Date/Time: 12/28/22 14:42 Attending Provider: Jose M Arevalo Admit Provider: Jose M Arevalo Primary Care Provider: Jackie Irwin Other Providers: Sylvain Figueroa ; Mauro Perez
[2022-12-31] MEDS ORDERED: LANTUS PER UNIT CHARGE SQ ONE (12:12)
== END 2022-12-31 12:13 | disposition home or self-care (01) | DRG 454 ==
LOC: ASU 10:28 → 3E 14:42

== ENCOUNTER 2025-07-23 06:25 | Inpatient (IN) ==
--- NOTE | 2025-06-14 15:24 | PAT Medication Instructions ---
Medication Instructions Date of Service June 14, 2025 Home Medications Medication Instructions Recorded ondansetron 4 mg disintegrating 4 mg PO Q8H PRN nausea and 01/25/23 tablet vomiting #30 tabs terconazole 0.4 % vaginal cream 1 appful vaginal .qhs #45 grams 04/14/23 estradiol 0.01% (0.1 mg/gram) 0.25 appful vaginal UD #42.5 grams 08/16/23 vaginal cream furosemide 20 mg tablet See Rx Instructions .Route 05/01/24 .COMPLEX #90 tabs sodium oxybate 9 gram 9 g PO HS for sleep disorder #30 ea 05/18/24 granules,extended release in packet (Lumryz) prednisone 20 mg tablet See Rx Instructions .Route 05/22/24 .COMPLEX #10 tabs diclofenac sodium 1 % topical gel 2 g topical QID #100 grams 07/06/24 (Voltaren Arthritis Pain) eptinezumab-jjmr 100 mg/mL 300 mg (3 mL) IV .COMPLEX 3 months 07/12/24 intravenous solution (Vyepti) omalizumab 300 mg/2 mL 300 mg (2 mL) subcut Q4WK #6 mL 11/23/24 subcutaneous auto-injector (Xolair) tizanidine 2 mg tablet 2 mg PO Q8H PRN muscle spasticity 12/12/24 #30 tabs epinephrine 0.3 mg/0.3 mL See Rx Instructions IM Q10M PRN 02/11/25 injection, auto-injector anaphylaxis #2 ea clobetasol 0.05 % topical ointment 1 applic topical 3XWK Rash #30 03/08/25 grams rimegepant 75 mg disintegrating 75 mg PO ONCE PRN migraine 03/08/25 tablet (Nurtec ODT) headache #8 tabs albuterol sulfate 90 mcg/actuation 2 puff inhalation QID PRN SHORT OF 05/29/25 aerosol inhaler BREATH #25.5 grams ondansetron 4 mg disintegrating tablet 4 mg PO Q8H PRN nausea and vomiting terconazole 0.4 % vaginal cream 1 appful vaginal .qhs aspirin 325 mg tablet 325 mg PO QPM cholecalciferol (vitamin D3) 25 mcg (1,000 unit) capsule 25 mcg PO QDL folic acid 1 mg tablet 1,000 mcg PO QAM estradiol 0.01% (0.1 mg/gram) vaginal cream 0.25 appful vaginal UD furosemide 20 mg tablet See Rx Instructions .Route .COMPLEX sodium oxybate 9 gram granules,extended release in packet (Lumryz) 9 g PO HS for sleep disorder prednisone 20 mg tablet See Rx Instructions .Route .COMPLEX diclofenac sodium 1 % topical gel (Voltaren Arthritis Pain) 2 g topical QID eptinezumab-jjmr 100 mg/mL intravenous solution (Vyepti) 300 mg (3 mL) IV .COMPLEX omalizumab 300 mg/2 mL subcutaneous auto-injector (Xolair) 300 mg (2 mL) subcut Q4WK escitalopram oxalate 10 mg tablet 10 mg PO QAM pitolisant 17.8 mg tablet (Wakix) 17.8 mg PO DAILY ropinirole 1 mg tablet 3 mg PO PM tizanidine 2 mg tablet 2 mg PO Q8H PRN muscle spasticity epinephrine 0.3 mg/0.3 mL injection, auto-injector See Rx Instructions IM Q10M PRN anaphylaxis clobetasol 0.05 % topical ointment 1 applic topical 3XWK Rash rimegepant 75 mg disintegrating tablet (Nurtec ODT) 75 mg PO ONCE PRN migraine headache albuterol sulfate 90 mcg/actuation aerosol inhaler 2 puff inhalation QID PRN SHORT OF BREATH aripiprazole 5 mg tablet 5 mg PO HS iron,carbonyl 65 mg-vitamin C 125 mg tablet,delayed release (Vitron-C) 1 tab PO QAM levothyroxine 137 mcg tablet 137 mcg PO QAM oxybutynin chloride 5 mg tablet,extended release 24 hr 5 mg PO QAM Continue as directed epinephrine 0.3 mg/0.3 mL injection, auto-injector See Rx Instructions IM Q10M PRN anaphylaxis (if needed) prednisone 20 mg tablet See Rx Instructions .Route .COMPLEX ASK your prescriber and surgeon aspirin 325 mg tablet 325 mg PO QPM eptinezumab-jjmr 100 mg/mL intravenous solution (Vyepti) 300 mg (3 mL) IV .COMPLEX omalizumab 300 mg/2 mL subcutaneous auto-injector (Xolair) 300 mg (2 mL) subcut Q4WK pitolisant 17.8 mg tablet (Wakix) 17.8 mg PO DAILY STOP taking 24 hours before surgery terconazole 0.4 % vaginal cream 1 appful vaginal .qhs estradiol 0.01% (0.1 mg/gram) vaginal cream 0.25 appful vaginal UD diclofenac sodium 1 % topical gel (Voltaren Arthritis Pain) 2 g topical QID clobetasol 0.05 % topical ointment 1 applic topical 3XWK Rash DO NOT take the morning of surgery cholecalciferol (vitamin D3) 25 mcg (1,000 unit) capsule 25 mcg PO QDL folic acid 1 mg tablet 1,000 mcg PO QAM furosemide 20 mg tablet See Rx Instructions .Route .COMPLEX iron,carbonyl 65 mg-vitamin C 125 mg tablet,delayed release (Vitron-C) 1 tab PO QAM oxybutynin chloride 5 mg tablet,extended release 24 hr 5 mg PO QAM Take morning of surgery With a small sip of water, OTHERWISE NOTHING TO EAT OR DRINK AFTER MIDNIGHT: ondansetron 4 mg disintegrating tablet 4 mg PO Q8H PRN nausea and vomiting (if needed) escitalopram oxalate 10 mg tablet 10 mg PO QAM tizanidine 2 mg tablet 2 mg PO Q8H PRN muscle spasticity (if needed) rimegepant 75 mg disintegrating tablet (Nurtec ODT) 75 mg PO ONCE PRN migraine headache (if needed) albuterol sulfate 90 mcg/actuation aerosol inhaler 2 puff inhalation QID PRN SHORT OF BREATH (use if needed; please bring rescue inhaler with you to hospital day of surgery if possible) levothyroxine 137 mcg tablet 137 mcg PO QAM Take evening before surgery ondansetron 4 mg disintegrating tablet 4 mg PO Q8H PRN nausea and vomiting (if needed) sodium oxybate 9 gram granules,extended release in packet (Lumryz) 9 g PO HS for sleep disorder ropinirole 1 mg tablet 3 mg PO PM tizanidine 2 mg tablet 2 mg PO Q8H PRN muscle spasticity (if needed) rimegepant 75 mg disintegrating tablet (Nurtec ODT) 75 mg PO ONCE PRN migraine headache (if needed) albuterol sulfate 90 mcg/actuation aerosol inhaler 2 puff inhalation QID PRN SHORT OF BREATH (if needed) aripiprazole 5 mg tablet 5 mg PO HS Other Notes If you have any questions please call us at [phone] or [phone] or [phone] or [phone]
--- NOTE | 2025-06-20 15:17 | Anesthesiology Consultation ---
Date of Service June 20, 2025 Assessment & Plan (1) Encounter for pre-operative examination: - Infectious disease screening: Per assessment on 06/20/25- No known recent infectious disease contacts or current infectious disease symptoms. - S/P B/l Mastopexy (05/09/23): Grade 2 view, MAC#3, ETT 7.0, [facility] No issues noted per post-op anesthesia progress note. - Allergy visit (11/23/24): "Pt. is a 59-y o female who follows in our clinic for chronic idiopathic urticaria. At her appt. w/Dr. Salvador in May 2024 it was noted that she had hives and angioedema [episodes] for almost a yr and they had not responded to high doses of 1st generation antihistamines, 2nd generation antihistamines, montelukast, H2 blockers, and prednisone. She had tried and failed over 3 months of treatment with those medications in combination. He recommended she start Xolair 300 mgs every 4 wks.. She presents today for f/u. She has had 2 doses and received her 3rd dose today. She is tolerating the injections w/o side effects. She has had no hives for approximately 1 month but she reports an itchy head approximately 1x/month w/o associated rash. When she experiences this she takes prednisone 40 mgs w/Benadryl. She typically starts that combination of medications approximately 20 minutes after the symptoms start. She continues to take montelukast, cetirizine 10 mgs, 2 daily, and hydroxyzine 25 mgs at bedtime. Since she has noted improvement in her symptoms I am recommending you start to decrease her oral medications. I am 1st recommending she D/C hydroxyzine. I discussed if she develops an itchy head she should take an extra Zyrtec rather than the prednisone. I discussed that the prednisone is reserved for swelling. If she develops swelling she should take the prednisone as it will prevent the swelling progressing." > Per patient at PAT visit 06/20/25, doing well on current regimen. - Cardiology visit (06/05/25): Able to get to more than 4 Mets of activity without any exertional symptoms. "No further cardiac workup needed prior to her back and bariatric surgery. She has a [id number] risk for major adverse cardiac events.. patient states.. would like to await her surgery and then consider statin therapy for her HLD.." - Cardio note (06/05/25): "Low to moderate risk.. Patient is cleared for scheduled surgery" - Hx angioedema/chronic idiopathic urticaria: Follows with [facility] allergy. Allergy made aware of upcoming surgery and per workload note 06/21/25, "No changes are needed. I recommend she continue with her current medications and it should prevent any flare ups with her surgery. Sometimes these patients can develop worsening hives post-op related to use of opioids. Please reach out if she starts to get itching or rashes postop." - Acceptable risk for surgery pending surgeon-ordered PCP preop evaluation ([facility], appt 07/15). Chart Review Chart Review: Patient seen in Pre Admission Testing Teaching & Discussion Pre-Anesthesia Teaching/Discussion Notes: Instructed NPO after midnight before surgery,except medications with 15 cc of water. Medication instructions provided according to the PAT guidelines. History Surgery Operation Date: 07/29/25 07:45 Proposed Procedures p L1-L3 Decompression and Fusion - Jose M Arevalo DO Height/Weight Height: 5 ft 6 in Weight: 92.2 kg Allergies Allergy/AdvReac Type Severity Reaction Status Date / Time nitrofurantoin Allergy Severe Heart Verified 06/14/25 13:43 failure meperidine Allergy Intermediate Hives, rash Verified 06/14/25 13:43 venom-honey bee Allergy Mild Large Verified 06/14/25 13:43 local reactions adhesive tape AdvReac Mild Skin Verified 06/14/25 15:24 sensitivity Medications Home Medications Medication Instructions Recorded Confirmed Last Taken ondansetron 4 mg disintegrating 4 mg PO Q8H PRN nausea and 01/25/23 06/14/25 04/25/23 tablet vomiting #30 tabs terconazole 0.4 % vaginal cream 1 appful vaginal .qhs #45 grams 04/14/2303/03 Unknown aspirin 325 mg tablet 325 mg PO QPM 04/28/23 06/14/25 08/14/23 cholecalciferol (vitamin D3) 25 25 mcg PO QDL 04/28/23 06/14/25 08/14/23 mcg (1,000 unit) capsule folic acid 1 mg tablet 1,000 mcg PO QAM 07/06/14/25 08/14/23 estradiol 0.01% (0.1 mg/gram) 0.25 appful vaginal UD #42.5 grams 08/16/23 06/14/25 Unknown vaginal cream furosemide 20 mg tablet See Rx Instructions .Route 05/01/24 06/14/25 Unknown .COMPLEX #90 tabs sodium oxybate 9 gram 9 g PO HS for sleep disorder #30 ea 05/18/24 06/14/25 Unknown granules,extended release in packet (Lumryz) prednisone 20 mg tablet See Rx Instructions .Route 05/22/24 06/14/25 Unknown .COMPLEX #10 tabs diclofenac sodium 1 % topical gel 2 g topical QID #100 grams 07/06/24 06/14/25 Unknown (Voltaren Arthritis Pain) eptinezumab-jjmr 100 mg/mL 300 mg (3 mL) IV .COMPLEX 3 months 07/12/24 06/14/25 Unknown intravenous solution (Vyepti) omalizumab 300 mg/2 mL 300 mg (2 mL) subcut Q4WK #6 mL 11/23/24 06/14/25 Unknown subcutaneous auto-injector (Xolair) escitalopram oxalate 10 mg tablet 10 mg PO QAM 12/12/24 06/14/25 Unknown pitolisant 17.8 mg tablet (Wakix) 17.8 mg PO DAILY 12/12/24 06/14/25 Unknown ropinirole 1 mg tablet 3 mg PO PM 12/12/24 06/14/25 Unknown tizanidine 2 mg tablet 2 mg PO Q8H PRN muscle spasticity 12/12/24 06/14/25 Unknown #30 tabs epinephrine 0.3 mg/0.3 mL See Rx Instructions IM Q10M PRN 02/11/25 06/14/25 Unknown injection, auto-injector anaphylaxis #2 ea clobetasol 0.05 % topical ointment 1 applic topical 3XWK Rash #30 03/08/25 06/14/25 Unknown grams rimegepant 75 mg disintegrating 75 mg PO ONCE PRN migraine 03/08/25 06/14/25 Unknown tablet (Nurtec ODT) headache #8 tabs albuterol sulfate 90 mcg/actuation 2 puff inhalation QID PRN SHORT OF 05/29/25 06/14/25 Unknown aerosol inhaler BREATH #25.5 grams aripiprazole 5 mg tablet 5 mg PO HS 06/14/25 06/14/25 Unknown iron,carbonyl 65 mg-vitamin C 125 1 tab PO QAM 06/14/25 06/14/25 Unknown mg tablet,delayed release (Vitron-C) levothyroxine 137 mcg tablet 137 mcg PO QAM 06/14/25 06/14/25 Unknown oxybutynin chloride 5 mg 5 mg PO QAM 06/14/25 06/14/25 Unknown tablet,extended release 24 hr Past Medical History Medical History (Updated 06/21/25 @ 09:10 by Giovanna Jackson) Chronic idiopathic urticaria Follows with [facility] Allergy Depression with anxiety Fibromyalgia History of angioedema Follows with [facility] Allergy History of COVID-19 2020 History of heart failure 10+ years ago, r/t allergic reaction to Macrobid > no issues since History of traumatic injury of head From sleep walking, "just stitches" Hx of endometriosis Hx of gastroesophageal reflux (GERD) No recent issues Hypothyroidism Migraines Narcolepsy Post traumatic stress disorder Restless leg syndrome Right internal carotid artery aneurysm Dx 4 years ago > stent placed ([place]) Neck CTA 04/16/25: No acute findings. Patent OSCAR stent Shortness of breath Reason for inhaler per patient Sleep apnea CPAP (compliant) Sleep walking Temporomandibular joint disorder Exercise / Class Metabolic Activity II 4-5 Yardwork/Stairs/Walk up hill (one FS: No CP, no SOB) Past Family History Family History Sister Family history of diabetes mellitus Grandmother (Maternal) Family history of diabetes mellitus Grandfather (Paternal) Family hx of colon cancer Mother Hypertension Denies family history of Ovarian cancer Breast cancer Uterine cancer Past Surgical History Surgical History H/O bilateral oophorectomy History of anesthesia reaction Awareness > has to get benadryl prior to help with this per pt History of appendectomy History of arthroscopy Right knee History of blepharoplasty R/L History of bunionectomy Rx1, Lx2 History of carpal tunnel release R/L History of section x1 History of cholecystectomy History of colonoscopy History of endoscopic sinus surgery History of esophagogastroduodenoscopy (EGD) History of laparoscopy endometriosis, adhesions, hyst, uni oophorectomy x 2 History of lumbar fusion L3-S1 decompression/fusion (11/29/20): Grade view 1, MAC#3, ETT 7.5, atraumatic at [facility]. No issues noted per post-op anesthesia progress note. History of lumbar surgery L2-3 decompression, L2-S1 fusion, L4-5 hardware removal 12/28/22= Done under [facility] with Grade 1 view with MAC #3. ETT #7.0. History of tonsillectomy and adenoidectomy History of tooth extraction Nausea and vomiting after administration of anesthetic agent S/P dilation and curettage S/P laparoscopic supracervical hysterectomy Past Anesthesia History Other (Awareness > has to get benadryl prior to help with this per pt ) Brother: Difficulty "getting numb" during dental procedures History of PONV History of PONV (Given preop Zofran in the past) and Hx of Motion Sickness Social History Smoking Status: Former smoker tobacco type: cigarettes Do You Dip or Chew Tobacco: No Smoking End Date: Quit 2013 Hx Alcohol Use: Yes alcohol intake frequency: holidays/special occasions only Hx Substance Use: No substance use type: does not use Review of Systems Patient denies chest pain, shortness of breath, dyspnea on exertion, fever, chills, cough, wheezing, palpitations. Physical Exam Vital Signs BP 116/75 P 92 TEMP 98.0 SP02 96%Ra RESP 16 Physical Mildly decreased cervical extension range of motion. Full TMJ range of motion. TMD 3 finger breaths Mallampati Score III Dentition: intact, + implants (upper front) Lungs: clear throughout to auscultation Cardiac: regular rate and rhythm, no murmurs noted Spine: normal Carotid arteries: negative bruit Extremities: no LE edema Lab Results Anesthesia Preop Results Results Anesthesia Widget: WBC 8.24 K/ul (4.8-10.8) 06/20/25 Hgb 13.6 g/dl (12.0-16.0) 06/20/25 Hct 41.1 % (37.0-47.0) 06/20/25 Plt 300 K/uL (130-400) 06/20/25 Na 141 mmol/L (136-145) 06/20/25 K 3.9 mmol/L (3.5-5.1) 06/20/25 Cl 106 mmol/L (98-107) 06/20/25 CO2 27 mmol/L (21-32) 06/20/25 BUN 18 mg/dl (6-23) 06/20/25 Creat 0.92 mg/dl (0.6-1.2) 06/20/25 Glucose Level 136 mg/dl (70-99(Fasting)) H 06/20/25 PT 10.4 Seconds (9.0-12.0) 06/20/25 PTT 29 Seconds (21-31) 06/20/25 INR 1.0 (0.9-1.1) 06/20/25 Urine Color Yellow 06/20/25 Urine Appearance Clear (Clear) 06/20/25 Urine pH 7.5 (4.5-7.5) 06/20/25 Urine Specific [place] 1.020 (1.000-1.030) 06/20/25 Urine Protein Negative (Negative) 06/20/25 Urine Glucose (UA) Negative (Negative) 06/20/25 Urine Ketones Negative (Negative) 06/20/25 Urine Blood Negative (Negative) 06/20/25 Urine Nitrite Negative (Negative) 06/20/25 Urine Bilirubin Negative (Negative) 06/20/25 Urine Urobilinogen Negative (Negative) 06/20/25 Urine Leukocyte Esterase Negative (Negative) 06/20/25 Blood Type O Positive 06/20/25 Antibody Screen NEGATIVE 06/20/25 Testing Electrocardiogram Date: 06/05/25 Findings: + NSR @ (89) Chest X-Ray Date: 06/20/25 FINDINGS: Heart size and pulmonary vasculature are normal. No consolidation or pleural effusion. Stable minimal elevation of the right hemidiaphragm. IMPRESSION: No acute findings. Echocardiogram Date: 05/16/25 LVEF 55-59%. LV wall motion is normal. No significant valvular disease. Grade I DD. Stress Test Date: 12/14/22 Treadmill exercise stress test is negative for inducible ischemia MPHR 97%. 8 METS achieved. No significant arrhythmias were noted. Normal BP response and heart rate response to exercise. Patient denied chest discomfort reporting only fatigue at peak exercise. Other Testing CTA head/neck Date: 04/16/[address] No acute findings on CT head or CTA break/neck. Patent right ICA stent.
[~2025-07-23 06:25] MED LIST changes: +LR 60ML/HR IV SCH; -ceFAZolin 2000MG 2,000 MG/15 ML SYR IV SCH
[2025-07-23] MEDS ORDERED: KETAMINE HCL 10MG/ML SYR ONE (06:54)
[2025-07-23] MEDS ORDERED: MIDAZOLAM HCL 1 MG/ML 2ML VIAL ONE (06:54)
[2025-07-23] MEDS ORDERED: ROCURONIUM BROMIDE 10 MG/ML 5 ML VIAL IV ONE (06:55)
[2025-07-23] MEDS: ACETAMINOPHEN 500 MG TAB PO SCH (06:58)
[2025-07-23] MEDS ORDERED: PROPOFOL IV EMULSION 10 MG/ML 100 ML VIAL IV ONE (06:58)
[2025-07-23] MEDS: LR 15ML/HR IV SCH (06:58)
[2025-07-23] MEDS: LR 60ML/HR IV SCH (06:58)
[2025-07-23] MEDS ORDERED: MAG SULFATE 50% 1GM/2ML VIAL IV ONE (06:59)
[2025-07-23] MEDS: CeleBREX 200 MG CAP PO SCH (06:59)
[2025-07-23] MEDS: GABAPENTIN 600 MG DOSE PO SCH (06:59)
[2025-07-23] MEDS ORDERED: PROPOFOL IV EMULSION 10 MG/ML 20 ML VIAL IV ONE (07:11)
[2025-07-23] MEDS ORDERED: ONDANSETRON INJ 2 MG/ML 2 ML VIAL ONE (07:14)
[2025-07-23] MEDS ORDERED: DEXAMETHASONE SOD INJ 4 MG/ML VIAL ONE (07:14)
[2025-07-23] MEDS ORDERED: ATROPINE SULFATE 0.1 MG/ML 10ML SYR IV PRN (07:30)
--- NOTE | 2025-07-23 07:45 | History & Physical Bridge Note ---
Date of Service July 23, 2025 History & Physical Bridge Note I have examined the patient, reviewed the History & Physical and in the interval since the performance of the History & Physical I have noted the following changes of clinical significance: no changes noted
--- NOTE | 2025-07-23 07:46 | History & Physical Report ---
Date of Service July 23, 2025 Assessment & Plan (1) Other spondylosis with radiculopathy, lumbar region: Plan: L1-L3 decompression and fusion History of Present Illness Chief Complaint: Back and leg pain Primary Care Provider: Jackie Irwin DO This is a 60-year-old female who presents for chronic persistent back and leg pain and failed course of nonoperative care is here for surgical invention. Allergies Allergy/AdvReac Type Severity Reaction Status Date / Time nitrofurantoin Allergy Severe Heart Verified 07/23/25 06:27 failure meperidine Allergy Intermediate Hives, rash Verified 07/23/25 06:27 venom-honey bee Allergy Mild Large Verified 07/23/25 06:27 local reactions adhesive tape AdvReac Mild Skin Verified 07/23/25 06:27 sensitivity Home Medications Medication Instructions Recorded Confirmed Type ondansetron 4 mg disintegrating 4 mg PO Q8H PRN nausea and 01/25/23 07/23/25 Rx tablet vomiting #30 tabs terconazole 0.4 % vaginal cream 1 appful vaginal .qhs #45 grams 04/14/23 07/23/25 Rx aspirin 325 mg tablet 325 mg PO QPM 04/28/23 07/23/25 History cholecalciferol (vitamin D3) 25 25 mcg PO QDL 04/28/23 07/23/25 History mcg (1,000 unit) capsule folic acid 1 mg tablet 1,000 mcg PO QAM 04/28/23 07/23/25 History estradiol 0.01% (0.1 mg/gram) 0.25 appful vaginal UD #42.5 grams 08/16/23 Rx vaginal cream sodium oxybate 9 gram 9 g PO HS for sleep disorder #30 ea 05/18/24 07/23/25 Rx granules,extended release in packet (Lumryz) prednisone 20 mg tablet See Rx Instructions .Route 05/22/24 07/23/25 Rx .COMPLEX #10 tabs diclofenac sodium 1 % topical gel 2 g topical QID #100 grams 07/06/24 07/23/25 Rx (Voltaren Arthritis Pain) omalizumab 300 mg/2 mL 300 mg (2 mL) subcut Q4WK #6 mL 11/23/24 07/23/25 Rx subcutaneous auto-injector (Xolair) escitalopram oxalate 10 mg tablet 10 mg PO QAM 12/12/24 07/23/25 History pitolisant 17.8 mg tablet (Wakix) 17.8 mg PO DAILY 12/12/24 07/23/25 History ropinirole 1 mg tablet 3 mg PO PM 12/12/24 07/23/25 History tizanidine 2 mg tablet 2 mg PO Q8H PRN muscle spasticity 12/12/24 07/23/25 Rx #30 tabs epinephrine 0.3 mg/0.3 mL See Rx Instructions IM Q10M PRN 02/11/25 07/23/25 Rx injection, auto-injector anaphylaxis #2 ea clobetasol 0.05 % topical ointment 1 applic topical 3XWK Rash #30 03/08/25 07/23/25 Rx grams rimegepant 75 mg disintegrating 75 mg PO ONCE PRN migraine 03/08/25 07/23/25 Rx tablet (Nurtec ODT) headache #8 tabs albuterol sulfate 90 mcg/actuation 2 puff inhalation QID PRN SHORT OF 05/29/25 07/23/25 Rx aerosol inhaler BREATH #25.5 grams aripiprazole 5 mg tablet 5 mg PO HS 06/14/25 07/23/25 History iron,carbonyl 65 mg-vitamin C 125 1 tab PO QAM 06/14/25 07/23/25 History mg tablet,delayed release (Vitron-C) levothyroxine 137 mcg tablet 137 mcg PO QAM 06/14/25 07/23/25 History oxybutynin chloride 5 mg 5 mg PO QAM 06/14/25 07/23/25 History tablet,extended release 24 hr eptinezumab-jjmr 100 mg/mL 300 mg (3 mL) IV .COMPLEX 3 months 07/03/25 07/23/25 Rx intravenous solution (Vyepti) ropinirole 0.25 mg tablet 0.25 mg PO DAILY 07/15/25 07/23/25 History furosemide 20 mg tablet 20 mg PO DAILY 07/23/25 07/23/25 History vitamin M29-wcewkloix factor 110 1 cap PO DAILY 07/23/25 07/23/25 History mg-0.5 mg capsule Past Med/Surg History Problem List (Updated 07/23/25 @ 07:46 by Jose M M Irina, DO) Other spondylosis with radiculopathy, lumbar region Chronic idiopathic urticaria Sleep walking Headache Vertigo Lichen sclerosus Vaginal candidiasis Vaginal discharge Verruca(e) Obesity Vitamin D deficiency B12 deficiency History of iron deficiency Internal carotid artery stent present Chronic migraine Migraines Depression with anxiety Neurogenic claudication due to lumbar spinal stenosis Spinal stenosis History of dysphagia S/p esophageal stretching GERD (gastroesophageal reflux disease) Hypothyroidism Narcolepsy Restless leg syndrome Sleep apnea "Mild", CPAP (compliant) Medical History History of angioedema Shortness of breath Depression with anxiety Chronic idiopathic urticaria History of traumatic injury of head Migraines Hx of gastroesophageal reflux (GERD) Hypothyroidism Sleep apnea Restless leg syndrome Narcolepsy Sleep walking History of heart failure History of COVID-19 Right internal carotid artery aneurysm Fibromyalgia Hx of endometriosis Temporomandibular joint disorder Post traumatic stress disorder Surgical History History of lumbar surgery S/P dilation and curettage S/P laparoscopic supracervical hysterectomy History of lumbar fusion History of anesthesia reaction Nausea and vomiting after administration of anesthetic agent History of arthroscopy History of bunionectomy History of carpal tunnel release History of esophagogastroduodenoscopy (EGD) History of colonoscopy H/O bilateral oophorectomy History of laparoscopy History of section History of appendectomy History of cholecystectomy History of tooth extraction History of tonsillectomy and adenoidectomy History of blepharoplasty History of endoscopic sinus surgery Family History Sister Family history of diabetes mellitus Grandmother (Maternal) Family history of diabetes mellitus Grandfather (Paternal) Family hx of colon cancer Mother Hypertension Denies family history of Ovarian cancer Breast cancer Uterine cancer Social History Smoking Status: Former smoker Tobacco Type: Cigarettes Age Started Using Tobacco: 18; Age Quit Using Tobacco: 49; packs per day: 1; Smoking End Date: Quit 2013; Second Hand Exposure: No; Do You Dip or Chew Tobacco: No; Tobacco Cessation Education Requested by Patient: No Hx Alcohol Use: Yes Hx Substance Use: No Preferred Language: Belarusian Communication Ability: Effective Visual Impairment: No Limitations Mortgage Loan Processing Clerk Required: No Beliefs That Will Affect Care: None marital status: Current Living Situation: Family Current Living Situation Comment: [place] Other Information That Helps Us Care for You: No Feels Safe at Home: Yes Safety Concerns: Feels Safe At This Time Assistive Devices: Glasses Physical Exam Physical Exam: Patient is alert and oriented Heart regular rhythm Lungs clear Results & Data Results & Data Vital Signs (Past 12 Hours) Vital Signs Temp Pulse Resp BP Pulse Ox O2 Del Method 07/23/25 06:33 Room Air, CPAP 07/23/25 06:33 36.8 C 64 18 106/61 96 Room Air, CPAP
[2025-07-23] MEDS ORDERED: SUGAMMADEX SODIUM 200 MG/2 ML VIAL IV ONE (08:40)
[2025-07-23] MEDS: BUPIVACAINE/EPINEPHRINE 0.25% 1:200,000 30 ML VIAL ONE (08:56)
[2025-07-23] MEDS: ceFAZolin 330 MG/ML 1 GM VIAL ONE (08:57)
[2025-07-23] MEDS: FLOSEAL HEMOSTATIC MATRIX 10ML TOP ONE (09:23)
--- NOTE | 2025-07-23 09:36 | Operative Report ---
Post Operative Report Pre & Post Diagnosis Operation Date: 07/23/25 07:45 Pre-Op Diagnosis: Other Spondylosis with Radiculopathy, Lumbar Region Post-Op Diagnosis: Other Spondylosis with Radiculopathy, Lumbar Region I identified the patient and participated in the time-out.: Yes Procedure Operation Date: 07/23/25 07:45 Actual Procedures #1 lumbar decompression of bilateral facetectomies and foraminotomies L1-L2 L2- L3. #2 posterior spinal fusion L2-L3. #3 placed a posterior instrumentation L2 with connectors at L2-L3 rods. #4 interbody fusion L2-L3. #5 placement Spira 11 x 26 mm at L2-3. #6 placement of Proteus combined with Koros in the posterior lateral gutters and os design interbody space. #7 application of versa wrap of the exposed dura. Surgeon Jose M Arevalo, DO Personnel Arbitrator Moriah Spencer Estimated Blood Loss 200 Findings See Below The patient is 5 foot 6 weighing over 91 kg with a BMI in excess of 32. This combined with marked epidural adhesions as well as bony overgrowth covering the rods at L2 with 3 created significant technical difficulty and at least 40% increased operative time. I am recommending a modifier 22. Specimens None Indications This is a 60-year-old female who presents by much diagnosis after failing course of nonoperative care she is here for surgical invention. Description of Procedure Patient was met with identified informed consent obtained. Patient was then taken to the operative suite underwent a patient placed in a prone position on the Steven table atop the Juan frame. All bony prominences well-padded eyes inspected to ensure no external pressure placed upon them. This point the thoracolumbar spine was prepped and draped in the normal sterile fashion. Sharp dissection with the assistance of Bovie cautery from down to and exposing the lamina and transverse processes of L2 and the instrumentation and rods at L2-L3. Then performed a complete laminectomy of L2 with bilateral medial facetectomies and foraminotomies addressing severe neural compression followed by partial laminectomy of L1 with bilateral medial facetectomies to address all spondylosis and neural compression. Marked epidural adhesions were noted including significant challenge throughout the decompression. Pedicle screws were then placed in L2 bilaterally with assistance of fluoroscopy. I then prepared the yuri between L2 L3-4 connector. Marked bony overgrowth was addressed and was able to successfully attach a connector. By way of transfer and approach and left complete discectomy of L2-L3 was performed endplates corrected to subcortical mean bone and 11 x 26 mm Spira cage filled with os design bone graft tapped in position. The proper size rods were then placed and locked into position bilaterally. The transverse processes of L2-L3 burred to subcortical bleeding bone. Proteus combined with Koros bone graft placed in the posterior gutters. Versa wrap placed over the exposed dura. 15 round CLAUDE drain inserted. The incision was then closed with 1 Vicryl to fascia 2-0 Vicryl subcutaneously and 4-0 Monocryl for final skin closure. Steri-Strips sterile dressing placed. Patient waken taken to PACU stable condition. Please note Moriah Spencer was present at the entire procedure and while the patient positioning complex portions of the surgery and fascial closure. My decompression fusion. I attest to the content of the Intraoperative Record and any orders documented therein. Any exceptions are noted below.
[2025-07-23] MEDS: ONDANSETRON INJ 2 MG/ML 2 ML VIAL IV PRN (10:02)
--- NOTE | 2025-07-23 10:08 | Fluoroscopy Report ---
FL lumbar spine 2-3V CLINICAL HISTORY: L1-L3 DECOMPRESSION/FUSION COMPARISON STUDY: None FLUOROSCOPY TIME: 9 seconds FLUOROSCOPY IMAGES: 2 EXPOSURE DOSE: 10 mGy FINDINGS: Fluoroscopy was provided for lumbar metallic fusion. IMPRESSION: Intraoperative fluoroscopy. ACT 112: Negative or not required by law. Electronically signed by: Adan Helm M.D. 07/23/2025 10:07 AM
[2025-07-23] MEDS: HYDROmorphone INJ 1 MG/ML SYRINGE IV PRN (10:18)
[2025-07-23] MEDS ORDERED: PROMETHAZINE 12.5 MG/50.5 ML BAG IV PRN (11:00)
[2025-07-23] MEDS ORDERED: ONDANSETRON 4 MG OD TAB PO PRN (11:00)
[2025-07-23] MEDS ORDERED: ALUMINUM/MAGNESIUM SUSP 30 ML UDC PO PRN (11:00)
[2025-07-23] MEDS ORDERED: HYDROmorphone INJ 1 MG/ML SYRINGE IV PRN (11:00)
[2025-07-23] MEDS ORDERED: FAMOTIDINE 20 MG TAB PO PRN (11:00)
[2025-07-23] MEDS ORDERED: ALBUTEROL HFA 8 GM INHALER INH PRN (11:00)
[2025-07-23] MEDS ORDERED: MAGNESIUM HYDROXIDE SUSP 30 ML UDC PO PRN (11:00)
[2025-07-23] MEDS ORDERED: ONDANSETRON INJ 2 MG/ML 2 ML VIAL IV PRN (11:00)
[2025-07-23] MEDS ORDERED: HYDROmorphone INJ 0.5 MG/0.5 ML SYR IV PRN (11:00)
[2025-07-23] MEDS ORDERED: ACETAMINOPHEN 1,000 MG/100 ML VIAL IV PRN (11:00)
[2025-07-23] MEDS ORDERED: SOD PHOSPHATE/SOD BIPHOSPHATE ENEMA 132 ML BTL PR PRN (11:00)
[2025-07-23] MEDS ORDERED: DO NOT ADMINISTER FLU VACCINE PRN (11:00)
[2025-07-23] MEDS ORDERED: ACETAMINOPHEN 500 MG TAB PO PRN (11:00)
[2025-07-23] MEDS ORDERED: DO NOT ADMINISTER PNEUMOCOCCAL VACCINE PRN (11:00)
[2025-07-23] MEDS ORDERED: METOCLOPRAMIDE HCL INJ 5 MG/ML 2 ML VIAL IV PRN (11:00)
[2025-07-23] MEDS ORDERED: LORazepam Inj 0.5 MG in SYRINGE 0.25 ML IV PRN (11:00)
[2025-07-23] MEDS ORDERED: LORazepam 0.5 MG TAB PO PRN (11:00)
[2025-07-23] MEDS ORDERED: NALOXONE HCL 0.4 MG/1 ML VIAL/CARP IV PRN (11:00)
[2025-07-23] MEDS ORDERED: diphenhydrAMINE Capsule 25 MG CAP PO PRN (11:00)
--- NOTE | 2025-07-23 11:50 | Hospitalist Consultation ---
Date of Consultation July 23, 2025 Assessment & Plan (1) Other spondylosis with radiculopathy, lumbar region: (2) Sleep apnea: (3) Hypothyroidism: (4) Depression with anxiety: Plan This is a 60 year old female with past medical history of hypothyroidism, depression, allergic rhinitis, and DARIEN who presented to the hospital for elective spinal surgery with Dr. Arevalo on 07/23/2025. #Lumbar radiculopathy s/p L1-L2, L2-L3 decompression & fusion with Dr. Arevalo on 07/23/2025. Pain management, diet, DVT prophylaxis per primary team. PT/OT consults per primary team #DARIEN CPAP nightly #Hypothyroidism Continue Synthroid Recheck TSH in AM, was previously elevated in April 2025 at 5.83 #RLS - Ropinirole #Migraines - Continue Nurtec & Vypeti #HTN - Lasix, can hold post-operatively and likely resume on 07/25. #Depression - Lexapro & Abilify DVT prophylaxis: Per primary team Code: full Consultation discussed w/ Dr. Figueroa at time of encounter. Thank you for this consultation, we will continue to follow along. Supervising Physician Co-Signing Physician Notes The patient was seen by me. The chart was reviewed. Case discussed with GEOVANI Messer. Agree with assessment and plan History of Present Illness Attending Physician: Jose M Arevalo, DO History of Present Illness This is a 60 year old female with past medical history of hypothyroidism, depression, allergic rhinitis, and DARIEN who presented to the hospital for elective spinal surgery with Dr. Arevalo on 07/23/2025. Ashley was seen and examined this morning. She reports her surgery went well today. She was experiencing post-op pain. Aside from this, she denies any additional complaints. She reports no CP, SOB, abd pain, N/V. She states she had a history of medication induced HF many years ago but denies any additional hx of cardiac disease. Allergies Allergy/AdvReac Type Severity Reaction Status Date / Time nitrofurantoin Allergy Severe Heart Verified 07/23/25 06:27 failure meperidine Allergy Intermediate Hives, rash Verified 07/23/25 06:27 venom-honey bee Allergy Mild Large Verified 07/23/25 06:27 local reactions adhesive tape AdvReac Mild Skin Verified 07/23/25 06:27 sensitivity Home Medications Medication Instructions Recorded Confirmed Type ondansetron 4 mg disintegrating 4 mg PO Q8H PRN nausea and 01/25/23 07/23/25 Rx tablet vomiting #30 tabs terconazole 0.4 % vaginal cream 1 appful vaginal .qhs #45 grams 04/14/23 07/23/25 Rx aspirin 325 mg tablet 325 mg PO QPM 04/28/23 07/23/25 History cholecalciferol (vitamin D3) 25 25 mcg PO QDL 04/28/23 07/23/25 History mcg (1,000 unit) capsule folic acid 1 mg tablet 1,000 mcg PO QAM 04/28/23 07/23/25 History estradiol 0.01% (0.1 mg/gram) 0.25 appful vaginal UD #42.5 grams 08/16/23 07/23/25 Rx vaginal cream sodium oxybate 9 gram 9 g PO HS for sleep disorder #30 ea 05/18/24 07/23/25 Rx granules,extended release in packet (Lumryz) prednisone 20 mg tablet See Rx Instructions .Route 05/22/24 07/23/25 Rx .COMPLEX #10 tabs diclofenac sodium 1 % topical gel 2 g topical QID #100 grams 07/06/24 07/23/25 Rx (Voltaren Arthritis Pain) omalizumab 300 mg/2 mL 300 mg (2 mL) subcut Q4WK #6 mL 11/23/24 07/23/25 Rx subcutaneous auto-injector (Xolair) escitalopram oxalate 10 mg tablet 10 mg PO QAM 12/12/24 07/23/25 History pitolisant 17.8 mg tablet (Wakix) 17.8 mg PO DAILY 12/12/24 07/23/25 History ropinirole 1 mg tablet 3 mg PO PM 12/12/24 07/23/25 History tizanidine 2 mg tablet 2 mg PO Q8H PRN muscle spasticity 12/12/24 07/23/25 Rx #30 tabs epinephrine 0.3 mg/0.3 mL See Rx Instructions IM Q10M PRN 02/11/25 07/23/25 Rx injection, auto-injector anaphylaxis #2 ea clobetasol 0.05 % topical ointment 1 applic topical 3XWK Rash #30 03/08/25 07/23/25 Rx grams rimegepant 75 mg disintegrating 75 mg PO ONCE PRN migraine 03/08/25 07/23/25 Rx tablet (Nurtec ODT) headache #8 tabs albuterol sulfate 90 mcg/actuation 2 puff inhalation QID PRN SHORT OF 05/29/25 07/23/25 Rx aerosol inhaler BREATH #25.5 grams aripiprazole 5 mg tablet 5 mg PO HS 06/14/25 07/23/25 History iron,carbonyl 65 mg-vitamin C 125 1 tab PO QAM 06/14/25 07/23/25 History mg tablet,delayed release (Vitron-C) levothyroxine 137 mcg tablet 137 mcg PO QAM 06/14/25 07/23/25 History oxybutynin chloride 5 mg 5 mg PO QAM 06/14/25 07/23/25 History tablet,extended release 24 hr eptinezumab-jjmr 100 mg/mL 300 mg (3 mL) IV .COMPLEX 3 months 07/03/25 07/23/25 Rx intravenous solution (Vyepti) ropinirole 0.25 mg tablet 0.25 mg PO DAILY 07/15/25 07/23/25 History furosemide 20 mg tablet 20 mg PO DAILY 07/23/25 07/23/25 History vitamin Q16-sauvodbiu factor 110 1 cap PO DAILY 07/23/25 07/23/25 History mg-0.5 mg capsule Patient History Medical History (Updated 07/23/25 @ 12:35 by Tia Kaiser PA-C) History of angioedema Follows with [facility] Allergy Shortness of breath Reason for inhaler per patient Depression with anxiety Chronic idiopathic urticaria Follows with [facility] Allergy History of traumatic injury of head From sleep walking, "just stitches" Migraines Hx of gastroesophageal reflux (GERD) No recent issues Hypothyroidism Sleep apnea CPAP (compliant) Restless leg syndrome Narcolepsy Sleep walking History of heart failure 10+ years ago, r/t allergic reaction to Macrobid > no issues since History of COVID-19 2020 Right internal carotid artery aneurysm Dx 4 years ago > stent placed ([facility]) Neck CTA 04/16/25: No acute findings. Patent OSCAR stent Fibromyalgia Hx of endometriosis Temporomandibular joint disorder Post traumatic stress disorder Surgical History History of lumbar surgery L2-3 decompression, L2-S1 fusion, L4-5 hardware removal 12/28/22= Done under [facility] with Grade 1 view with MAC #3. ETT #7.0. S/P dilation and curettage S/P laparoscopic supracervical hysterectomy History of lumbar fusion L3-S1 decompression/fusion (11/29/20): Grade view 1, MAC#3, ETT 7.5, atraumatic at [facility]. No issues noted per post-op anesthesia progress note. History of anesthesia reaction Awareness > has to get benadryl prior to help with this per pt Nausea and vomiting after administration of anesthetic agent History of arthroscopy Right knee History of bunionectomy Rx1, Lx2 History of carpal tunnel release R/L History of esophagogastroduodenoscopy (EGD) History of colonoscopy H/O bilateral oophorectomy History of laparoscopy endometriosis, adhesions, hyst, uni oophorectomy x 2 History of section x1 History of appendectomy History of cholecystectomy History of tooth extraction History of tonsillectomy and adenoidectomy History of blepharoplasty R/L History of endoscopic sinus surgery Family History Sister Family history of diabetes mellitus Grandmother (Maternal) Family history of diabetes mellitus Grandfather (Paternal) Family hx of colon cancer Mother Hypertension Denies family history of Ovarian cancer Breast cancer Uterine cancer Social History Smoking Status: Former smoker Tobacco Type: Cigarettes Age Started Using Tobacco: 18; Age Quit Using Tobacco: 49; packs per day: 1; Smoking End Date: Quit 2013; Second Hand Exposure: No; Do You Dip or Chew Tobacco: No; Tobacco Cessation Education Requested by Patient: No Hx Alcohol Use: Yes Hx Substance Use: No Preferred Language: Singaporean Communication Ability: Effective Visual Impairment: No Limitations Can Filling Machine Operator Required: No Beliefs That Will Affect Care: None marital status: Current Living Situation: Family Current Living Situation Comment: [facility] Other Information That Helps Us Care for You: No Feels Safe at Home: Yes Safety Concerns: Feels Safe At This Time Assistive Devices: Glasses Physical Exam Physical Exam: General: NAD, VS: BP 97/62; P65; R16; T36.3C Resp: normal respiratory effort, lungs clear to auscultation CV: RRR, no murmur Abd: normal bowel sounds, non tender Extremities: Moves all extremities, no edema Neuro: A&O x3 Skin: intact, no lesions noted Results & Data Results & Data Vital Signs (Past 12 Hours) Vital Signs Temp Pulse Pulse Resp BP Pulse Ox O2 Del Method 07/23/25 11:02 36.5 C 55 L 16 113/72 96 Room Air 07/23/25 10:30 36.4 C L 55 L 16 102/65 98 Nasal Cannula 07/23/25 10:20 52 L 12 99/59 L 97 Oxymask 07/23/25 10:10 61 14 119/64 96 Oxymask 07/23/25 10:00 61 16 106/58 L 98 Oxymask 07/23/25 09:49 36 C L 66 16 101/40 L 95 Oxymask 07/23/25 06:33 Room Air, CPAP 07/23/25 06:33 36.8 C 64 18 106/61 96 Room Air, CPAP O2 Flow Rate 07/23/25 11:02 07/23/25 10:30 2 07/23/25 10:20 3 07/23/25 10:10 3 07/23/25 10:00 6 07/23/25 09:49 6 07/23/25 06:33 07/23/25 06:33 PG Care Time/CCT Total # of Minutes Spent Total Time Spent with Patient: Total time spent is greater than 50% in coordination of care (as documented) at patient's floor/unit and/or counseling patient: Coding Level of Care Code 50909 IN/OBS CONSULT LVL 3,45M Diagnoses Other spondylosis with radiculopathy, lumbar region M47.26 Sleep apnea G47.30 Hypothyroidism E03.9 Depression with anxiety F41.8
--- NOTE | 2025-07-23 12:06 | Anesthesiology Progress Note ---
Date of Service July 23, 2025 Anesthesia Post Procedure Vital Signs Vital Signs: Temp Pulse Pulse Resp BP Pulse Ox O2 Del Method 07/23/25 11:02 36.5 C 55 L 16 113/72 96 Room Air 07/23/25 10:30 36.4 C L 55 L 16 102/65 98 Nasal Cannula 07/23/25 10:20 52 L 12 99/59 L 97 Oxymask 07/23/25 10:10 61 14 119/64 96 Oxymask 07/23/25 10:00 61 16 106/58 L 98 Oxymask 07/23/25 09:49 36 C L 66 16 101/40 L 95 Oxymask 07/23/25 06:33 Room Air, CPAP 07/23/25 06:33 36.8 C 64 18 106/61 96 Room Air, CPAP O2 Flow Rate 07/23/25 11:02 07/23/25 10:30 2 07/23/25 10:20 3 07/23/25 10:10 3 07/23/25 10:00 6 07/23/25 09:49 6 07/23/25 06:33 07/23/25 06:33 Pain Intensity Head: Pain Intensity: 3 Back: Pain Intensity: 6 Transfer of Care Handoff Completed per policy Notes Mental Status: alert / awake / arousable Patient Amnestic to Procedure: Yes Nausea / Vomiting: adequately controlled Pain: adequately controlled Airway Patency, RR, SpO2: stable & adequate BP & HR: stable & adequate Hydration State: stable & adequate Anesthetic Complications: no major complications apparent and Pt Satisfied with anesthetic care
[2025-07-23] MEDS: LACTATED RINGER'S 1,000 ML IV SCH (12:41)
[2025-07-23] MEDS: CHOLECALCIFEROL 25 MCG (1000 UNITS) TAB PO SCH (13:08)
[2025-07-23] MEDS: DOCUSATE SODIUM/SENNA 50/8.6MG TAB PO SCH (20:47)
[2025-07-23] MEDS: ASPIRIN 325 MG ECTAB PO SCH (20:49)
[2025-07-23] MEDS: ARIPiprazole 5 MG TAB PO SCH (20:49)
[2025-07-24] MEDS: LEVOTHYROXINE SODIUM 137 MCG TABLET PO SCH (06:06)
[2025-07-24] MEDS: POLYETHYLENE (MIRALAX) 17 GM PACK PO SCH (06:06)
[2025-07-24 07:59] LABS: Hematocrit (blood only) 34.3 % (37.0-47.0); Hemoglobin 11.1 g/dl (12.0-16.0); Immature Granulocytes # (auto) 0.03 K/uL (0.01-0.20); Immature Granulocytes % (auto) 0.2 %; Mean Corpuscular Hemoglobin 31.5 pg (25.0-34.0); Mean Corpuscular Volume 97.4 fL (80.0-100.0); Platelet Count 297 K/uL (130-400); RDW Standard Deviation 45.1 fL (36.4-46.3); Red Blood Count 3.52 M/uL (4.20-5.40); White Blood Count 12.57 K/ul (4.8-10.8)
[2025-07-24 08:21] LABS: Anion Gap 7.0 (3-11); Blood Urea Nitrogen 15.0 mg/dl (6-23); Calcium 9.2 mg/dl (8.6-10.3); Carbon Dioxide 26.0 mmol/L (21-32); Chloride 106.0 mmol/L (98-107); Creatinine Clr Calc Pharmacy 95.8 ml/min; Glucose 103.0 mg/dl (70-99(Fasting)); Potassium 4.1 mmol/L (3.5-5.1); Sodium 139.0 mmol/L (136-145)
--- NOTE | 2025-07-24 08:26 | Orthopedic Progress Note ---
Date of Service July 24, 2025 Assessment & Plan (1) Other spondylosis with radiculopathy, lumbar region: Plan: Today we will initiate physical therapy monitor CLAUDE output over the discharge over the next few days. Admission and Anticipated Discharge Date Admission Date: July 23, 2025 Subjective Patient's back pain is controlled leg symptoms improved. She is up and ambulating yesterday. Physical Exam Physical Exam: Patient currently in bed. She is comfortable. Good strength testing. Results & Data Vital Signs (Past 12 Hours) Vital Signs Temp Pulse Resp BP BP Pulse Ox O2 Del Method 07/24/25 07:00 36.7 C 57 L 18 108/64 95 Room Air 07/24/25 03:18 36.7 C 60 16 102/54 L 94 Room Air 07/23/25 23:05 36.7 C 65 16 106/62 93 Room Air Queries Orthopedic Spine Obesity: Yes
[2025-07-24 08:37] LABS: Thyroid Stimulating Hormone 0.153 uIu/ml (0.300-4.500)
[2025-07-24] MEDS: FOLIC ACID 1 MG TAB PO SCH (09:51)
[2025-07-24] MEDS: FERROUS SULFATE 325 MG TAB PO SCH (09:51)
[2025-07-24] MEDS: CYANOCOBALAMIN (B-12) 500 MCG TABLET PO SCH (09:52)
[2025-07-24] MEDS: ASCORBIC ACID 500 MG TAB PO SCH (09:52)
[2025-07-24] MEDS: OXYBUTYNIN CHLORIDE XL 5 MG TABCR PO SCH (09:52)
[2025-07-24] MEDS: ESCITALOPRAM OXALATE 10 MG TAB PO SCH (09:52)
[2025-07-24] MEDS: dexAMETHasone 6 MG in SYRINGE 0 ML IV SCH (09:52)
--- NOTE | 2025-07-24 10:56 | Hospitalist Progress Note ---
Date of Service July 24, 2025 Assessment & Plan (1) Other spondylosis with radiculopathy, lumbar region: (2) Sleep apnea: (3) Hypothyroidism: (4) Depression with anxiety: Plan This is a 60 year old female with past medical history of hypothyroidism, depression, allergic rhinitis, and DARIEN who presented to the hospital for elective spinal surgery with Dr. Arevalo on 07/23/2025. #Lumbar radiculopathy s/p L1-L2, L2-L3 decompression & fusion with Dr. Arevalo on 07/23/2025. Pain management, diet, DVT prophylaxis per primary team. PT/OT consults per primary team #DARIEN - CPAP nightly #Hypothyroidism Continue Synthroid TSH low at 0.153 Rec follow up w/ her PCP for dose adjustments as necessary of Synthroid. #RLS - Ropinirole #Migraines - Continue Nurtec & Vypeti #HTN - Resume Lasix 07/25. #Depression - Lexapro & Abilify DVT prophylaxis: Per primary team Code: full At this time our hospitalist service will sign off. Please call us back with any questions or concerns. Admission and Anticipated Discharge Date Admission Date: July 23, 2025 Supervising Physician Co-Signing Physician Notes The patient was not seen by me. The chart was reviewed. Case discussed with GEOVANI Messer. Agree with assessment and plan Ray Ramirez was seen & examined this morning. She is feeling well today. She worked with PT today. She was sitting in her chair at time of encounter working on her laptop. Physical Exam Physical Exam: General: NAD, VS: BP 105/69; P67; R18; T36.6C Resp: normal respiratory effort Extremities: no edema Neuro: A&O x3 Skin: intact, no lesions noted Results & Data Results & Data Vital Signs (Past 12 Hours) Vital Signs Temp Pulse Resp BP BP Pulse Ox O2 Del Method 07/24/25 10:36 36.6 C 67 18 105/69 96 Room Air 07/24/25 10:32 36.6 C 67 18 105/69 96 Room Air 07/24/25 07:00 36.7 C 57 L 18 108/64 95 Room Air 07/24/25 03:18 36.7 C 60 16 102/54 L 94 Room Air 07/23/25 23:05 36.7 C 65 16 106/62 93 Room Air PG Care Time/CCT Total # of Minutes Spent Total Time Spent with Patient: Total time spent is greater than 50% in coordination of care (as documented) at patient's floor/unit and/or counseling patient: Coding Level of Care Code 28826 SUB INP/OBS CARE 2/35MIN Diagnoses Other spondylosis with radiculopathy, lumbar region M47.26 Sleep apnea G47.30 Hypothyroidism E03.9 Depression with anxiety F41.8
[2025-07-25 07:08] VITALS: RESP 18
--- NOTE | 2025-07-25 08:30 | Orthopedic Progress Note ---
Date of Service July 25, 2025 Assessment & Plan (1) Other spondylosis with radiculopathy, lumbar region: Plan: Ashley is postoperative day 2 status post LD23 decompression and fusion. She is doing well. Maintain CLAUDE drain. Continue with physical therapy/ambulation today. DVT prophylaxis is in the form of teds and SCDs. Continue with aggressive bowel regimen. Anticipate discharge home tomorrow Admission and Anticipated Discharge Date Admission Date: July 23, 2025 Subjective Ashley is postoperative day 2 status post L2-3 decompression and fusion. She is doing well. Right leg pain has resolved. Back pain is controlled. She has had a bowel movement. CLAUDE drain output last shift is 30 cc. Yesterday in physical therapy ambulating 220 feet. No new complaints. Review of Systems Review of Systems: All systems reviewed & are unremarkable except as noted in HPI & below Physical Exam Physical Exam: She is sitting up in bed eating breakfast in no acute distress Alert and oriented x 3 Lumbar dressing is clean dry intact with functioning CLAUDE drain Strength intact bilateral lower extremities Results & Data Vital Signs (Past 12 Hours) Vital Signs Temp Pulse Resp BP Pulse Ox O2 Del Method 07/25/25 07:07 36.8 C 66 18 100/61 95 Room Air 07/25/25 00:24 36.7 C 58 L 16 113/70 93 Room Air Queries Orthopedic Spine Obesity: Yes
[2025-07-25] MEDS: FUROSEMIDE 20 MG TAB PO SCH (09:45)
[2025-07-25] MEDS: ESTRACE VAG CREAM 0.01% 42.5 GM PV SCH (20:24)
[2025-07-25 22:51] VITALS: TEMP 97.7
[2025-07-26 08:05] VITALS: BP 148/91; PULSE 78; O2SAT 93
--- NOTE | 2025-07-26 09:28 | Discharge Summary ---
Date of Service July 26, 2025 Admission HPI Per Admitting Provider This is a 60-year-old female who presents for chronic persistent back and leg pain and failed course of nonoperative care is here for surgical invention. Principal Diagnosis Lumbar spondylosis with radiculopathy Discharge Data Allergies Allergy/AdvReac Type Severity Reaction Status Date / Time nitrofurantoin Allergy Severe Heart Verified 07/23/25 06:27 failure meperidine Allergy Intermediate Hives, rash Verified 07/23/25 06:27 venom-honey bee Allergy Mild Large Verified 07/23/25 06:27 local reactions adhesive tape AdvReac Mild Skin Verified 07/23/25 06:27 sensitivity Consultations 07/23/25 11:00 Consult Hospitalist Routine Procedures Performed Operation Date: 07/23/25 07:45 Actual Procedures p L2-L3 Decompression and Fusion(Not Applicable) - Jose M Arevalo DO Ordered Studies 07/23/25 07:45 FL lumbar spine 2-3V Routine Hospital Course (1) Other spondylosis with radiculopathy, lumbar region: Patient underwent lumbar decompression and fusion tolerated as well as taken orthopedic for postoperative. Postop she progressed appropriately. Marked improvement of her back and leg symptoms. CLAUDE drain decreasing. Extra strength testing. Subsidy discharged home. Discharge orders and instructions from the chart for further review. Total Time Total Time Spent Total Time Spent (In Minutes): 20 minutes Discharge Plan Discharge Items Patient Disposition: Home - Self-Care Reason For Visit: Spinal Stenosis of Lumbar Region with Radiculopath Discharge Diagnosis: Lumbar spondylosis with radiculopathy Activity: As commented below Non-emergency contact: Primary Care Provider Call non-emergency contact if: you have any medication questions Follow-up/Referrals: Jackie Irwin DO [Primary Care Provider] - Diet: Regular Addtl Attending Provider Instructions: ACTIVITY RECOMMENDATIONS: SELF CARE INSTRUCTIONS AFTER THORACIC/LUMBAR FUSIONS 1. You may walk to your tolerance. It is good exercise for your legs and back. Expect some back and intermittent leg aches and pains. 2. You may perform "counter-top" level activities (make a sandwich, francoise with a project, etc.). 3. No bending or lifting of more than 10 pounds or back twisting of any nature (roll like a log when turning in bed). 4. You may ride in a car for 20-30 minutes at a time. No driving until after your first visit with your doctor. 5. Frequent changes of position and restricting sitting to 30 minutes at a time will help limit the amount of back spasms and stiffness you may experience. 6. You may discontinue the use of ambulatory aids (cane, crutches, etc.) once your strength and confidence allow. 7. You may learning and development intern the shower and let water strike your incision when you arrive home at least once daily. Do not take a tub bath, sit in a hot tub or go into a swimming pool until after your first recheck in the office. 8. You may resume previous diet. SPECIAL CARE INSTRUCTIONS: VERY IMPORTANT TO READ AND REVIEW A. Your surgical incision has been closed with a cosmetic suture under the skin that will dissolve in about 6 weeks. In 14 days, you can use a pair of clean scissors and cut the suture that is left outside of the skin at the ends of your incision. 1. The small skin tapes can be removed 7 days after surgery if they have not fallen off by that point. 2. You may keep the wound open to air as much as possible to promote healing after post-op day number 5 unless told otherwise by your doctor. 3. If you think the wound looks like it is becoming infected (redness or worsening drainage) and/or you are experiencing fever, chill or worsening back pain and muscle spasms, contact the office so that we may evaluate you as soon as possible. B. Complications are uncommon, but please contact us if you have any signs or symptoms of: 1. wound infection (fever higher than 102.5 degrees F, redness, separation of wound, drainage, or increasing pain from the incision) 2. blood clots in legs (pain, swelling, redness and warmth in legs) 3. urinary tract infection (fever higher than 102.5 degrees F, burning upon urination or increased frequency of urination) 4. nerve problems (inability to walk on your toes or heels, numbness, loss of bowel or bladder control) 5. any other symptoms that concern you C. Please call the office at if you have any concerns or q uestions about your operation or recovery. D. No smoking! Smoking drastically decreases the chance of a solid fusion. E. Do not take any anti-inflammatory medications (Indocin, Advil, Motrin, Aspirin, Naprosyn, etc.) as these may inhibit the chance of a solid fusion. Tylenol is okay to take for pain. MANAGING PAIN AFTER SPINAL SURGERY 1. Narcotic medication is intended for short-term use and will be provided for surgical pain. Surgical pain usually lasts for a period of 4-6 weeks. Narcotic medication includes Percocet, Vicodin, Darvocet, Tylenol #3 or Lortab. 2. Longer-term pain is more appropriately treated with non-narcotic medication such as Tylenol ES. 3. Muscle spasm is not appropriately treated with narcotics. Muscle relaxers such as Soma, Flexeril or Skelaxin can be used along with Tylenol ES. 4. Remember that we all live with some "aches and pains". This is not unusual or uncommon after an injury or as we get older. a. Back pain is expected and may include muscle spasms for 4 to 6 weeks after surgery. The pain should gradually improve. If the pain worsens for no apparent reason, please contact the office. b. Intermittent leg pain may also be experienced and should not be concerned about unless it worsens for no apparent reason. If so, please contact the office. 5. We will provide appropriate medication within the normal guidelines of their prescribed use. We will also be very cautious and aware of potential abuse and extended duration of patients' medication needs. a. Pain medications are for your comfort and to assist with sleep and rest so that the tissue can heal. They are not provided in order to return to normal activity and should not be used through the day. To do so or worsening pain at night can result from ongoing tissue damage and development of tolerance to the prescribed medicine. 6. Please allow 2-3 days to process refills. Prescriptions will not be mailed but must be picked up at the office. FOLLOW UP VISIT: Keep your scheduled follow-up appointment. Any questions, please call the office at . Pending Studies at Discharge: No Stand-Alone Forms: My [employer], Smoking Cessation Medications and DC Order Prescriptions: New tramadol 50 mg tablet 50 mg PO Q6H PRN (Reason: pain, moderate) Qty: 30 0RF oxycodone 5 mg tablet 5 mg PO Q6H PRN (Reason: pain) Qty: 30 0RF Continued ondansetron 4 mg tablet,disintegrating 4 mg PO Q8H PRN (Reason: nausea and vomiting) Qty: 30 0RF terconazole 0.4 % cream 1 appful vaginal .qhs Qty: 45 0RF estradiol 0.01 % (0.1 mg/gram) cream 0.25 appful vaginal UD Qty: 42.5 2RF Rx Instructions: apply nightly x 2 wks, then 2x/wk prednisone 20 mg tablet See Rx Instructions .ROUTE .COMPLEX Qty: 10 0RF Rx Instructions: TAKE 2 TABLETS BY MOUTH AT THE ONSET OF SWELLING.; epinephrine 0.3 mg/0.3 mL auto-injector See Rx Instructions IM Q10M PRN (Reason: anaphylaxis) Qty: 2 0RF Rx Instructions: For a severe reaction inject in outer thigh following instructions on package and go to the ER [facility] ER 02/10/25 Nurtec ODT 75 mg tablet,disintegrating 75 mg PO ONCE PRN (Reason: migraine headache) Qty: 8 5RF clobetasol 0.05 % ointment 1 applic topical 3XWK Qty: 30 0RF albuterol sulfate 90 mcg/actuation HFA aerosol inhaler 2 puff INHALATION QID PRN (Reason: SHORT OF BREATH) Qty: 25.5 1RF Vyepti 100 mg/mL solution 300 mg IV .COMPLEX 90 Days Rx Instructions: 300 mg intravenously EVERY 3 MONTHS- PREMEDICATE WITH 50MG IV DIPHENHYDRAMINE; diclofenac sodium [Voltaren Arthritis Pain] 1 % gel 2 g topical QID Qty: 100 2RF Rx Instructions: apply to single elbow, wrist or hand; for hand includes palm/fingers/back of hand Xolair 300 mg/2 mL auto-injector 300 mg subcut Q4WK Qty: 6 3RF Rx Instructions: APPROVED GOOD 10/24/24-11/23/25 CASE [id number] Lumryz 9 gram extend release granules,packet 9 g PO HS Qty: 30 0RF ropinirole 1 mg tablet 3 mg PO PM Wakix 17.8 mg tablet 17.8 mg PO DAILY Patient Comments: has not been taking 06/14/25 escitalopram oxalate 10 mg tablet 10 mg PO QAM tizanidine 2 mg tablet 2 mg PO Q8H PRN (Reason: muscle spasticity) Qty: 30 0RF ropinirole 0.25 mg tablet 0.25 mg PO DAILY aspirin 325 mg Tablet 325 mg PO QPM Hold Instructions: Resume on 05/23/23. folic acid 1 mg tablet 1,000 mcg PO QAM cholecalciferol (vitamin D3) 25 mcg (1,000 unit) capsule 25 mcg PO QDL aripiprazole 5 mg Tablet 5 mg PO HS levothyroxine 137 mcg tablet 137 mcg PO QAM oxybutynin chloride 5 mg tablet extended release 24hr 5 mg PO QAM Vitron-C 65 mg iron- 125 mg tablet,delayed release (DR/EC) 1 tab PO QAM furosemide 20 mg tablet 20 mg PO DAILY Rx Instructions: TAKE 1 TABLET DAILY IN THE MORNING vitamin E14-allzkmgec factor 110-0.5 mg Capsule 1 cap PO DAILY Discharge Orders: Discharge Order (Routine); Ordered 07/26/25 Ordered By: Jose M Arevalo Admission Data Admit Date/Time: 07/23/25 09:41 Attending Provider: Jose M Arevalo Admit Provider: Jose M Arevalo Primary Care Provider: Jackie Irwin Other Providers: Glen Mullen; Matt Michael; Sylvain Figueroa; Tal Gooden; Chris Roche; Adriana Osei; Migdalia Romero; Vaishali Leon Alicia D.; Shola Tucker; Bhavya Hartley; Reji Borrero; Ashley Zuniga; Matt Negron; Kevin Cruz Patrick J; Jamaica Tirado; [place] Goodwin; Marina Christian; Michael Richardson; Mauricio Zhang; Arben Lux; Mauro Perez; Marla Kruger; Zuleyka Chance; Tomy Palafox; Gris Merritt; Paulina Holcomb; Evelyn Tian; Cherie Herrera; Cirilo Rios; Rajesh Mcmillan; Elvis Hogan; Anatoliy Yuan; Shanda Crook; Sunny Miller; Susan Serrano; Keenan Hannon; Mirian Varela; Kelly Lucero; Austen Hannon; Ralph Oreilly; Christopher Bertrand; Gloria Nieves; Reilly Cano A
== END 2025-07-26 14:53 | disposition home or self-care (01) | DRG 402 ==
LOC: ASU 06:25 → 3W 09:41 → SUATTDRO 09:41